=== PATIENT | female | born 1940 | race Caucasian/White ===

== ENCOUNTER 2020-10-25 19:18 | Inpatient (IN) | payer MEDICARE, MEDICAID, SELFPAY ==
[2020-10-25 21:27] VITALS: BMI 22.6
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
[2020-10-26 05:37] VITALS: BP 173/70; PULSE 58; RESP 16; TEMP 36.8; O2SAT 100
[2020-10-26 05:50] VITALS: BP 173/70; PULSE 59
[2020-10-26] MEDS: lisinopriL 5 MG TABLET PO (05:50)
[2020-10-26 07:00] VITALS: BMI 22.8
[2020-10-26] MEDS: Levothyroxine Sodium 125 MCG TABLET PO (07:39)
[2020-10-26] MEDS: traMADoL HCL 50 MG TABLET 25 MG PO ×3 (09:46→21:48)
[2020-10-26] MEDS: Cyanocobalamin (Vitamin B-12) 100 MCG TABLET PO (09:46)
[2020-10-26 09:47] VITALS: BP 171/72; PULSE 57
[2020-10-26] MEDS: Sennosides 8.6 MG TABLET PO ×2 (09:47→21:49)
[2020-10-26] MEDS: Metoprolol Succinate ER 50 MG TAB.ER.24H PO (09:47)
[2020-10-26] MEDS: Aspirin 81 MG TAB.CHEW PO (09:47)
[2020-10-26] MEDS: allopurinoL 300 MG TABLET PO (09:47)
[2020-10-26] MEDS: Cholecalciferol (Vitamin D3) 25 MCG TABLET PO (09:48)
[2020-10-26] MEDS: Magnesium Oxide 400 MG TABLET PO ×2 (09:49→21:49)
[2020-10-26] MEDS: Famotidine 20 MG TABLET 40 MG PO (09:49)
[2020-10-26] MEDS: FLUoxetine HCl 20 MG CAPSULE PO (09:49)
[2020-10-26 09:50] VITALS: BP 171/72; PULSE 57
[2020-10-26] MEDS: amLODIPine Besylate 5 MG TABLET PO (09:50)
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
[2020-10-26 18:00] VITALS: BP 157/66; PULSE 55; RESP 16; TEMP 36.2; O2SAT 97
[2020-10-26] MEDS: Donepezil HCl 10 MG TABLET PO (21:48)
[2020-10-27 06:00] VITALS: BP 143/68; PULSE 51; RESP 12; TEMP 36.7; O2SAT 97
[2020-10-27] MEDS: Levothyroxine Sodium 125 MCG TABLET PO (06:35)
[2020-10-27 07:32] LABS: Valproate 48.7 mcg/mL (50.0-100.0)
[2020-10-27] MEDS: Cholecalciferol (Vitamin D3) 25 MCG TABLET PO (08:29)
[2020-10-27 08:30] VITALS: BP 146/66; PULSE 61
[2020-10-27] MEDS: amLODIPine Besylate 5 MG TABLET PO (08:30)
[2020-10-27] MEDS: Cyanocobalamin (Vitamin B-12) 100 MCG TABLET PO (08:30)
[2020-10-27] MEDS: Metoprolol Succinate ER 50 MG TAB.ER.24H PO (08:30)
[2020-10-27] MEDS: FLUoxetine HCl 20 MG CAPSULE PO (08:30)
[2020-10-27] MEDS: Famotidine 20 MG TABLET 40 MG PO (08:30)
[2020-10-27] MEDS: Sennosides 8.6 MG TABLET PO ×2 (08:30→20:23)
[2020-10-27] MEDS: Magnesium Oxide 400 MG TABLET PO ×2 (08:30→20:23)
[2020-10-27 08:31] VITALS: BP 146/66; PULSE 61
[2020-10-27] MEDS: Aspirin 81 MG TAB.CHEW PO (08:31)
[2020-10-27] MEDS: allopurinoL 300 MG TABLET PO (08:31)
[2020-10-27] MEDS: lisinopriL 5 MG TABLET PO (08:31)
[2020-10-27] MEDS: traMADoL HCL 50 MG TABLET 25 MG PO ×3 (10:08→20:24)
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
[2020-10-27] MEDS: Donepezil HCl 10 MG TABLET PO (20:26)
[2020-10-28 06:00] VITALS: BP 155/65; PULSE 57; RESP 12; TEMP 36.4; O2SAT 100
[2020-10-28] MEDS: Levothyroxine Sodium 125 MCG TABLET PO (06:07)
[2020-10-28] MEDS: FLUoxetine HCl 20 MG CAPSULE PO (08:03)
[2020-10-28] MEDS: Famotidine 20 MG TABLET 40 MG PO (08:03)
[2020-10-28 08:04] VITALS: BP 130/61; PULSE 55
[2020-10-28] MEDS: Cyanocobalamin (Vitamin B-12) 100 MCG TABLET PO (08:04)
[2020-10-28] MEDS: lisinopriL 5 MG TABLET PO (08:04)
[2020-10-28] MEDS: Cholecalciferol (Vitamin D3) 25 MCG TABLET PO (08:04)
[2020-10-28] MEDS: amLODIPine Besylate 5 MG TABLET PO (08:04)
[2020-10-28 08:05] VITALS: BP 130/61; PULSE 55
[2020-10-28] MEDS: allopurinoL 300 MG TABLET PO (08:05)
[2020-10-28] MEDS: Magnesium Oxide 400 MG TABLET PO ×2 (08:05→20:57)
[2020-10-28] MEDS: Aspirin 81 MG TAB.CHEW PO (08:05)
[2020-10-28] MEDS: Metoprolol Succinate ER 50 MG TAB.ER.24H PO (08:05)
[2020-10-28] MEDS: Sennosides 8.6 MG TABLET PO ×2 (08:05→20:57)
[2020-10-28] MEDS: traMADoL HCL 50 MG TABLET 25 MG PO ×3 (08:06→20:58)
--- NOTE | 2020-10-28 10:55 | PM.GPSY.PN ---
Subjective/Objective Subjective Current Medications: Active Medications Generic Name Dose Route Start Last Admin Trade Name Justinq PRN Reason Stop Dose Admin Acetaminophen 650 mg 10/26/20 03:14 Acetaminophen 325 Mg Tablet PO Q4H PRN moderate pain Allopurinol 300 mg 10/26/20 09:00 10/28/20 08:05 Allopurinol 300 Mg Tablet PO 300 mg DAILY [facility] Administration Amlodipine Besylate 5 mg 10/26/20 09:00 10/28/20 08:04 Amlodipine Besylate 5 Mg Tablet PO 5 mg DAILY [facility] Administration Protocol Aspirin 81 mg 10/26/20 09:00 10/28/20 08:05 Aspirin 81 Mg Tab.Chew PO 81 mg DAILY [facility] Administration Cyanocobalamin 100 mcg 10/26/20 09:00 10/28/20 08:04 Cyanocobalamin (Vitamin B-12) 100 Mcg Tablet PO 100 mcg DAILY [facility] Administration Donepezil HCl 10 mg 10/26/20 21:00 10/27/20 20:26 Donepezil Hcl 10 Mg Tablet PO 10 mg BEDTIME [facility] Administration Famotidine 40 mg 10/26/20 09:00 10/28/20 08:03 Famotidine 20 Mg Tablet PO 40 mg DAILY [facility] Administration Fluoxetine HCl 20 mg 10/26/20 09:00 10/28/20 08:03 Fluoxetine Hcl 20 Mg Capsule PO 20 mg DAILY [facility] Administration Levothyroxine Sodium 125 mcg 10/26/20 06:30 10/28/20 06:07 Levothyroxine Sodium 125 Mcg Tablet PO 125 mcg DAILY@0630 [facility] Administration Lisinopril 5 mg 10/26/20 09:00 10/28/20 08:04 Lisinopril 5 Mg Tablet PO 5 mg DAILY [facility] Administration Protocol Magnesium Oxide 400 mg 10/26/20 09:00 10/28/20 08:05 Magnesium Oxide 400 Mg Tablet PO 400 mg BID [facility] Administration Metoprolol Succinate 50 mg 10/26/20 09:00 10/28/20 08:05 Metoprolol Succinate Er 50 Mg Tab.Er.24h PO 50 mg DAILY [facility] Administration Protocol Senna 8.6 mg 10/26/20 09:00 10/28/20 08:05 Sennosides 8.6 Mg Tablet PO 8.6 mg BID [facility] Administration Tramadol HCl 25 mg 10/26/20 03:11 Tramadol Hcl 50 Mg Tablet PO Q6H PRN Moderate Pain (Scale Score 5-6) Tramadol HCl 25 mg 10/26/20 09:00 10/28/20 08:06 Tramadol Hcl 50 Mg Tablet PO 25 mg TID [facility] Administration Valproic Acid 750 mg 10/26/20 21:00 10/27/20 20:26 Valproic Acid (As Sodium Salt) 250 Mg/5 Ml Solution PO 750 mg BEDTIME [facility] Administration Valproic Acid 500 mg 10/26/20 09:00 10/28/20 08:07 Valproic Acid (As Sodium Salt) 250 Mg/5 Ml Solution PO 500 mg DAILY [facility] Administration Vitamin D 25 mcg 10/26/20 09:00 10/28/20 08:04 Cholecalciferol (Vitamin D3) 25 Mcg Tablet PO 25 mcg DAILY [facility] Administration Data Labs Labs: Laboratory Results - last 48 hr 10/27/20 06:21 Valproic Acid 48.7 L
[2020-10-28 18:32] VITALS: BP 130/61; PULSE 55; RESP 16; TEMP 36.6; O2SAT 98
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
[2020-10-28] MEDS: Donepezil HCl 10 MG TABLET PO (20:57)
[2020-10-29 06:00] VITALS: BP 140/96; PULSE 64; RESP 12; TEMP 36.9; O2SAT 98
[2020-10-29] MEDS: Levothyroxine Sodium 125 MCG TABLET PO (06:46)
[2020-10-29 09:01] VITALS: BP 151/70; PULSE 65; RESP 18; TEMP 36.3; O2SAT 100
[2020-10-29 09:03] VITALS: BP 151/70; PULSE 62
[2020-10-29] MEDS: Cyanocobalamin (Vitamin B-12) 100 MCG TABLET PO (09:03)
[2020-10-29] MEDS: allopurinoL 300 MG TABLET PO (09:03)
[2020-10-29] MEDS: Magnesium Oxide 400 MG TABLET PO ×2 (09:03→21:03)
[2020-10-29] MEDS: lisinopriL 5 MG TABLET PO (09:03)
[2020-10-29 09:04] VITALS: BP 151/70; PULSE 62
[2020-10-29] MEDS: Sennosides 8.6 MG TABLET PO ×2 (09:04→21:03)
[2020-10-29] MEDS: amLODIPine Besylate 5 MG TABLET PO (09:04)
[2020-10-29] MEDS: traMADoL HCL 50 MG TABLET 25 MG PO ×3 (09:04→21:04)
[2020-10-29] MEDS: Cholecalciferol (Vitamin D3) 25 MCG TABLET PO (09:04)
[2020-10-29] MEDS: Famotidine 20 MG TABLET 40 MG PO (09:04)
[2020-10-29 09:05] VITALS: BP 151/70; PULSE 62
[2020-10-29] MEDS: FLUoxetine HCl 20 MG CAPSULE PO (09:05)
[2020-10-29] MEDS: Metoprolol Succinate ER 50 MG TAB.ER.24H PO (09:05)
[2020-10-29] MEDS: Aspirin 81 MG TAB.CHEW PO (09:05)
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
[2020-10-29 18:00] VITALS: BP 138/63; PULSE 56; RESP 14; TEMP 36.8; O2SAT 97
[2020-10-29] MEDS: Donepezil HCl 10 MG TABLET PO (21:03)
[2020-10-30 06:00] VITALS: BP 159/70; PULSE 59; RESP 16; TEMP 36.1; O2SAT 98
[2020-10-30] MEDS: Levothyroxine Sodium 125 MCG TABLET PO (06:02)
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
[2020-10-30] MEDS: amLODIPine Besylate 5 MG TABLET PO (10:08)
[2020-10-30] MEDS: Cyanocobalamin (Vitamin B-12) 100 MCG TABLET PO (10:08)
[2020-10-30] MEDS: Magnesium Oxide 400 MG TABLET PO ×2 (10:08→21:00)
[2020-10-30] MEDS: lisinopriL 5 MG TABLET PO (10:08)
[2020-10-30] MEDS: Aspirin 81 MG TAB.CHEW PO (10:08)
[2020-10-30] MEDS: Sennosides 8.6 MG TABLET PO ×2 (10:08→21:00)
[2020-10-30] MEDS: Metoprolol Succinate ER 50 MG TAB.ER.24H PO (10:08)
[2020-10-30] MEDS: Famotidine 20 MG TABLET 40 MG PO (10:08)
[2020-10-30] MEDS: allopurinoL 300 MG TABLET PO (10:08)
[2020-10-30] MEDS: Cholecalciferol (Vitamin D3) 25 MCG TABLET PO (10:08)
[2020-10-30] MEDS: FLUoxetine HCl 20 MG CAPSULE PO (10:08)
[2020-10-30 18:00] VITALS: BP 154/68; PULSE 67; RESP 14; TEMP 36.5; O2SAT 97
[2020-10-30] MEDS: Donepezil HCl 10 MG TABLET PO (21:00)
[2020-10-30] MEDS: traMADoL HCL 50 MG TABLET 25 MG PO (21:00)
[2020-10-31 06:00] VITALS: BP 151/68; PULSE 61; RESP 12; TEMP 36.6; O2SAT 99
[2020-10-31] MEDS: Levothyroxine Sodium 125 MCG TABLET PO (06:10)
[2020-10-31] MEDS: Cyanocobalamin (Vitamin B-12) 100 MCG TABLET PO (09:23)
[2020-10-31] MEDS: Aspirin 81 MG TAB.CHEW PO (09:23)
[2020-10-31] MEDS: Famotidine 20 MG TABLET 40 MG PO (09:23)
[2020-10-31] MEDS: FLUoxetine HCl 20 MG CAPSULE PO (09:23)
[2020-10-31] MEDS: Magnesium Oxide 400 MG TABLET PO ×2 (09:24→20:38)
[2020-10-31] MEDS: Sennosides 8.6 MG TABLET PO ×2 (09:24→20:37)
[2020-10-31] MEDS: allopurinoL 300 MG TABLET PO (09:24)
[2020-10-31] MEDS: Cholecalciferol (Vitamin D3) 25 MCG TABLET PO (09:24)
[2020-10-31 09:25] VITALS: BP 148/70; PULSE 68
[2020-10-31] MEDS: Metoprolol Succinate ER 50 MG TAB.ER.24H PO (09:25)
[2020-10-31 09:26] VITALS: BP 148/70; PULSE 68
[2020-10-31] MEDS: amLODIPine Besylate 5 MG TABLET PO (09:26)
[2020-10-31] MEDS: lisinopriL 5 MG TABLET PO (09:26)
--- NOTE | 2020-10-31 11:57 | HO.PSYCHPN ---
Subjective Subjective Date of Service: 10/31/20 Reason For Visit: Bipolar Disorder unspecified Interim History: The patient was assessed and she reported doing well, anxious and hard of hearing. No evidence of psychosis or paranoia at this moment. Her mood stabilizer is at borderline but she is not acting out and we have not noticed behavioral disturbances. Review of Systems Acute medical concerns: No Medical Review of Systems: unchanged Mental Status Exam Mental Status Exam Patient Appearance: Well Grooomed Patient Orientation: Person Level of Consciousness: Awake Patient Behavior: Appropriate Mood Description: Calm Affect Description: Constricted Patient Cognition Impaired: No Ability to Follow Directions: Good Speech Pattern: Clear Memory Description: Intact Hallucinations: None Delusions: Not Present Thought Process: Slowed Thinking Thought Content: positive for Perseveration Judgement: Poor Diagnostics Vital Signs (24Hr): Vital Signs - 24 hr 10/30/20 18:00 10/31/20 06:00 10/31/20 09:25 Temperature 97.7 F 97.8 F Pulse Rate 67 61 68 Respiratory Rate 14 12 Blood Pressure 154/68 H 151/68 H 148/70 H Pulse Oximetry 97 99 10/31/20 09:26 Temperature Pulse Rate 68 Respiratory Rate Blood Pressure 148/70 H Pulse Oximetry Body Mass Index 22.8 Medications Medications Current Medications Generic Name Dose Route Start Last Admin Trade Name Freq PRN Reason Stop Dose Admin Acetaminophen 650 mg 10/26/20 03:14 Acetaminophen 325 Mg Tablet PO Q4H PRN moderate pain Allopurinol 300 mg 10/26/20 09:00 10/31/20 09:24 Allopurinol 300 Mg Tablet PO 300 mg DAILY MARIA ANTONIA Administration Amlodipine Besylate 5 mg 10/26/20 09:00 10/31/20 09:26 Amlodipine Besylate 5 Mg Tablet PO 5 mg DAILY MARIA ANTONIA Administration Protocol Aspirin 81 mg 10/26/20 09:00 10/31/20 09:23 Aspirin 81 Mg Tab.Chew PO 81 mg DAILY MARIA ANTONIA Administration Cyanocobalamin 100 mcg 10/26/20 09:00 10/31/20 09:23 Cyanocobalamin (Vitamin B-12) 100 Mcg Tablet PO 100 mcg DAILY MARIA ANTONIA Administration Donepezil HCl 10 mg 10/26/20 21:00 10/30/20 21:00 Donepezil Hcl 10 Mg Tablet PO 10 mg BEDTIME MARIA ANTONIA Administration Famotidine 40 mg 10/26/20 09:00 10/31/20 09:23 Famotidine 20 Mg Tablet PO 40 mg DAILY MARIA ANTONIA Administration Fluoxetine HCl 20 mg 10/26/20 09:00 10/31/20 09:23 Fluoxetine Hcl 20 Mg Capsule PO 20 mg DAILY MARIA ANTONIA Administration Levothyroxine Sodium 125 mcg 10/26/20 06:30 10/31/20 06:10 Levothyroxine Sodium 125 Mcg Tablet PO 125 mcg DAILY@0630 MARIA ANTONIA Administration Lisinopril 5 mg 10/26/20 09:00 10/31/20 09:26 Lisinopril 5 Mg Tablet PO 5 mg DAILY MARIA ANTONIA Administration Protocol Magnesium Oxide 400 mg 10/26/20 09:00 10/31/20 09:24 Magnesium Oxide 400 Mg Tablet PO 400 mg BID MARIA ANTONIA Administration Metoprolol Succinate 50 mg 10/26/20 09:00 10/31/20 09:25 Metoprolol Succinate Er 50 Mg Tab.Er.24h PO 50 mg DAILY MARIA ANTONIA Administration Protocol Senna 8.6 mg 10/26/20 09:00 10/31/20 09:24 Sennosides 8.6 Mg Tablet PO 8.6 mg BID MARIA ANTONIA Administration Tramadol HCl 25 mg 10/26/20 03:11 Tramadol Hcl 50 Mg Tablet PO Q6H PRN Moderate Pain (Scale Score 5-6) Valproic Acid 750 mg 10/26/20 21:00 10/30/20 21:00 Valproic Acid (As Sodium Salt) 250 Mg/5 Ml Solution PO 750 mg BEDTIME MARIA ANTONIA Administration Valproic Acid 500 mg 10/26/20 09:00 10/31/20 09:23 Valproic Acid (As Sodium Salt) 250 Mg/5 Ml Solution PO 500 mg DAILY MARIA ANTONIA Administration Vitamin D 25 mcg 10/26/20 09:00 10/31/20 09:24 Cholecalciferol (Vitamin D3) 25 Mcg Tablet PO 25 mcg DAILY MARIA ANTONIA Administration Allergies Allergies Allergy/AdvReac Type Severity Reaction Status Date / Time No Known Allergies Allergy Verified 10/25/20 20:56 Assessment & Plan Assessment & Plan (1) Bipolar 1 disorder: Status: Acute Code(s): F31.9 - Bipolar disorder, unspecified Assessment and Plan: This is an 80-year-old female with history of bipolar disorder, CAD status post stent placement, stroke (6 by patient account), hypertension, thyroid, dementia admitted for psychiatric decompensation. clearly still hypomanic but does not feel paranoid or mistreated here , wants to have say in her dc planning- PSYCHIATRY Continue Depakote lvl 48 ok could increase a bit though already having bruising Gather collateral, call her (does not believe it is her ?cori luong) Greater than 50% of the session was spent on counseling and/or coordination of care Reason for contiued inpatient stay Substantial Risk for: inability to function, rapid decompensation and med/psych decompensation
--- NOTE | 2020-10-31 17:13 | PC.NURSE ---
Patient is confused and grandiose. Has one hearing aid so does not hear well. Difficult to determine whether she is answering irrelevantly due to hearing issues or confusion. This copying machine mechanic believes it is more confusion and her desire to be in control of the conversation. She wanders in and out of her room during the day and while she is with other patients or participating in group she is calm and cooperative.
[2020-10-31 17:55] VITALS: BP 159/72; PULSE 68; RESP 14; TEMP 36.7; O2SAT 99
[2020-10-31] MEDS: Donepezil HCl 10 MG TABLET PO (20:37)
--- NOTE | 2020-10-31 21:51 | PC.NURSE ---
PT is concerned about the involvement and status of her throughout this process. PT is complaining of feeling like she is being wrongfully locked up on this unit. PT informed that the social science professor would speak with her again in the morning and provide details about her disposition.This nurse received report that social science professor had attempted to speak with the PT earlier but PT was falling asleep during the conversation.
[2020-11-01] MEDS: Levothyroxine Sodium 125 MCG TABLET PO (05:50)
[2020-11-01 06:00] VITALS: BP 141/64; PULSE 59; RESP 14; TEMP 35.5; O2SAT 100
[2020-11-01] MEDS: Magnesium Oxide 400 MG TABLET PO ×2 (08:15→20:18)
[2020-11-01] MEDS: Famotidine 20 MG TABLET 40 MG PO (08:15)
[2020-11-01] MEDS: Cyanocobalamin (Vitamin B-12) 100 MCG TABLET PO (08:15)
[2020-11-01] MEDS: allopurinoL 300 MG TABLET PO (08:15)
[2020-11-01 08:16] VITALS: BP 157/70; PULSE 66
[2020-11-01] MEDS: FLUoxetine HCl 20 MG CAPSULE PO (08:16)
[2020-11-01] MEDS: Cholecalciferol (Vitamin D3) 25 MCG TABLET PO (08:16)
[2020-11-01] MEDS: Sennosides 8.6 MG TABLET PO ×2 (08:16→20:18)
[2020-11-01] MEDS: Aspirin 81 MG TAB.CHEW PO (08:16)
[2020-11-01] MEDS: lisinopriL 5 MG TABLET PO (08:16)
[2020-11-01 08:17] VITALS: BP 157/70; PULSE 66
[2020-11-01] MEDS: Metoprolol Succinate ER 50 MG TAB.ER.24H PO (08:17)
[2020-11-01 08:18] VITALS: BP 157/70; PULSE 66
[2020-11-01] MEDS: amLODIPine Besylate 5 MG TABLET PO (08:18)
--- NOTE | 2020-11-01 12:11 | HO.PSYCHPN ---
Subjective Subjective Date of Service: 11/01/20 Reason For Visit: Bipolar Disorder unspecified Interim History: The patient has been calm and cooperative, pleasant and participating on the unit activities. She is hard of hearing and she is unable to provide details. Mental Status Exam Mental Status Exam Patient Appearance: Well Grooomed Patient Orientation: Person Level of Consciousness: Awake Patient Behavior: Appropriate and Cooperative Mood Description: Calm Affect Description: Calm Patient Cognition Impaired: Yes Ability to Follow Directions: Fair Speech Pattern: Clear Memory Description: Intact Hallucinations: None Delusions: Not Present Thought Process: Distracted Thought Content: positive for Circumstantial Judgement: Fair Diagnostics Vital Signs (24Hr): Vital Signs - 24 hr 10/31/20 17:55 11/01/20 06:00 11/01/20 08:16 Temperature 98.0 F 96 F L Pulse Rate 68 59 66 Respiratory Rate 14 14 Blood Pressure 159/72 H 141/64 H 157/70 H Pulse Oximetry 99 100 11/01/20 08:17 11/01/20 08:18 Temperature Pulse Rate 66 66 Respiratory Rate Blood Pressure 157/70 H 157/70 H Pulse Oximetry Body Mass Index 22.8 Medications Medications Current Medications Generic Name Dose Route Start Last Admin Trade Name Freq PRN Reason Stop Dose Admin Acetaminophen 650 mg 10/26/20 03:14 Acetaminophen 325 Mg Tablet PO Q4H PRN moderate pain Allopurinol 300 mg 10/26/20 09:00 11/01/20 08:15 Allopurinol 300 Mg Tablet PO 300 mg DAILY [facility] Administration Amlodipine Besylate 5 mg 10/26/20 09:00 11/01/20 08:18 Amlodipine Besylate 5 Mg Tablet PO 5 mg DAILY [facility] Administration Protocol Aspirin 81 mg 10/26/20 09:00 11/01/20 08:16 Aspirin 81 Mg Tab.Chew PO 81 mg DAILY [facility] Administration Cyanocobalamin 100 mcg 10/26/20 09:00 11/01/20 08:15 Cyanocobalamin (Vitamin B-12) 100 Mcg Tablet PO 100 mcg DAILY [facility] Administration Donepezil HCl 10 mg 10/26/20 21:00 10/31/20 20:37 Donepezil Hcl 10 Mg Tablet PO 10 mg BEDTIME [facility] Administration Famotidine 40 mg 10/26/20 09:00 11/01/20 08:15 Famotidine 20 Mg Tablet PO 40 mg DAILY [facility] Administration Fluoxetine HCl 20 mg 10/26/20 09:00 11/01/20 08:16 Fluoxetine Hcl 20 Mg Capsule PO 20 mg DAILY [facility] Administration Levothyroxine Sodium 125 mcg 10/26/20 06:30 11/01/20 05:50 Levothyroxine Sodium 125 Mcg Tablet PO 125 mcg DAILY@0630 [facility] Administration Lisinopril 5 mg 10/26/20 09:00 11/01/20 08:16 Lisinopril 5 Mg Tablet PO 5 mg DAILY [facility] Administration Protocol Magnesium Oxide 400 mg 10/26/20 09:00 11/01/20 08:15 Magnesium Oxide 400 Mg Tablet PO 400 mg BID [facility] Administration Metoprolol Succinate 50 mg 10/26/20 09:00 11/01/20 08:17 Metoprolol Succinate Er 50 Mg Tab.Er.24h PO 50 mg DAILY [facility] Administration Protocol Senna 8.6 mg 10/26/20 09:00 11/01/20 08:16 Sennosides 8.6 Mg Tablet PO 8.6 mg BID [facility] Administration Tramadol HCl 25 mg 10/26/20 03:11 Tramadol Hcl 50 Mg Tablet PO Q6H PRN Moderate Pain (Scale Score 5-6) Valproic Acid 750 mg 10/26/20 21:00 10/31/20 20:37 Valproic Acid (As Sodium Salt) 250 Mg/5 Ml Solution PO 750 mg BEDTIME [facility] Administration Valproic Acid 500 mg 10/26/20 09:00 11/01/20 08:15 Valproic Acid (As Sodium Salt) 250 Mg/5 Ml Solution PO 500 mg DAILY [facility] Administration Vitamin D 25 mcg 10/26/20 09:00 11/01/20 08:16 Cholecalciferol (Vitamin D3) 25 Mcg Tablet PO 25 mcg DAILY [facility] Administration Allergies Allergies Allergy/AdvReac Type Severity Reaction Status Date / Time No Known Allergies Allergy Verified 10/25/20 20:56 Assessment & Plan Assessment & Plan (1) Bipolar 1 disorder: Status: Acute Code(s): F31.9 - Bipolar disorder, unspecified Assessment and Plan: This is an 80-year-old female with history of bipolar disorder, CAD status post stent placement, stroke (6 by patient account), hypertension, thyroid, dementia admitted for psychiatric decompensation. clearly still hypomanic but does not feel paranoid or mistreated here , wants to have say in her dc planning- PSYCHIATRY Continue Depakote lvl 48 ok could increase a bit though already having bruising Gather collateral, call her (does not believe it is her ?cap cherise) Greater than 50% of the session was spent on counseling and/or coordination of care Reason for contiued inpatient stay Substantial Risk for: inability to function, rapid decompensation and med/psych decompensation
[2020-11-01 17:58] VITALS: BP 145/66; PULSE 58; RESP 17; TEMP 36.6; O2SAT 97
[2020-11-01] MEDS: Donepezil HCl 10 MG TABLET PO (20:18)
[2020-11-02 06:00] VITALS: BP 162/69; PULSE 61; RESP 12; TEMP 36.6; O2SAT 97
[2020-11-02] MEDS: Levothyroxine Sodium 125 MCG TABLET PO (06:03)
[2020-11-02 07:00] VITALS: BMI 22.9
[2020-11-02 09:10] VITALS: BP 144/70; PULSE 63
[2020-11-02] MEDS: Aspirin 81 MG TAB.CHEW PO (09:10)
[2020-11-02] MEDS: Metoprolol Succinate ER 50 MG TAB.ER.24H PO (09:10)
[2020-11-02] MEDS: Cyanocobalamin (Vitamin B-12) 100 MCG TABLET PO (09:11)
[2020-11-02] MEDS: FLUoxetine HCl 20 MG CAPSULE PO (09:11)
[2020-11-02] MEDS: Magnesium Oxide 400 MG TABLET PO ×2 (09:11→20:28)
[2020-11-02 09:12] VITALS: BP 144/70; PULSE 63
[2020-11-02] MEDS: allopurinoL 300 MG TABLET PO (09:12)
[2020-11-02] MEDS: Cholecalciferol (Vitamin D3) 25 MCG TABLET PO (09:12)
[2020-11-02] MEDS: lisinopriL 5 MG TABLET PO (09:12)
[2020-11-02 09:13] VITALS: BP 144/70; PULSE 63
[2020-11-02] MEDS: amLODIPine Besylate 5 MG TABLET PO (09:13)
[2020-11-02] MEDS: Famotidine 20 MG TABLET 40 MG PO (09:13)
[2020-11-02] MEDS: Sennosides 8.6 MG TABLET PO ×2 (09:14→20:28)
--- NOTE | 2020-11-02 11:34 | HO.PSYCHPN ---
Subjective Subjective Date of Service: 11/02/20 Reason For Visit: Bipolar Disorder unspecified Interim History: The patient was tearfula yesterday in the afternoon while she was talking over the phone. IN general, she remains cooperative, hard of hearing Mental Status Exam Mental Status Exam Patient Appearance: Well Grooomed Patient Orientation: Person Level of Consciousness: Awake Patient Behavior: Appropriate Mood Description: Calm Affect Description: Constricted Patient Cognition Impaired: Yes Ability to Follow Directions: Good Speech Pattern: Clear and Rapid Memory Description: Intact Hallucinations: None Delusions: Not Present Thought Process: Slowed Thinking Thought Content: positive for Poverty of Content Judgement: Fair Diagnostics Vital Signs (24Hr): Vital Signs - 24 hr 11/01/20 17:58 11/02/20 06:00 11/02/20 09:10 Temperature 97.8 F 97.8 F Pulse Rate 58 61 63 Respiratory Rate 17 12 Blood Pressure 145/66 H 162/69 H 144/70 H Pulse Oximetry 97 97 11/02/20 09:12 11/02/20 09:13 Temperature Pulse Rate 63 63 Respiratory Rate Blood Pressure 144/70 H 144/70 H Pulse Oximetry Body Mass Index 22.8 Medications Medications Current Medications Generic Name Dose Route Start Last Admin Trade Name Freq PRN Reason Stop Dose Admin Acetaminophen 650 mg 10/26/20 03:14 Acetaminophen 325 Mg Tablet PO Q4H PRN moderate pain Allopurinol 300 mg 10/26/20 09:00 11/02/20 09:12 Allopurinol 300 Mg Tablet PO 300 mg DAILY [facility] Administration Amlodipine Besylate 5 mg 10/26/20 09:00 11/02/20 09:13 Amlodipine Besylate 5 Mg Tablet PO 5 mg DAILY [facility] Administration Protocol Aspirin 81 mg 10/26/20 09:00 11/02/20 09:10 Aspirin 81 Mg Tab.Chew PO 81 mg DAILY [facility] Administration Cyanocobalamin 100 mcg 10/26/20 09:00 11/02/20 09:11 Cyanocobalamin (Vitamin B-12) 100 Mcg Tablet PO 100 mcg DAILY [facility] Administration Donepezil HCl 10 mg 10/26/20 21:00 11/01/20 20:18 Donepezil Hcl 10 Mg Tablet PO 10 mg BEDTIME [facility] Administration Famotidine 40 mg 10/26/20 09:00 11/02/20 09:13 Famotidine 20 Mg Tablet PO 40 mg DAILY [facility] Administration Fluoxetine HCl 20 mg 10/26/20 09:00 11/02/20 09:11 Fluoxetine Hcl 20 Mg Capsule PO 20 mg DAILY [facility] Administration Levothyroxine Sodium 125 mcg 10/26/20 06:30 11/02/20 06:03 Levothyroxine Sodium 125 Mcg Tablet PO 125 mcg DAILY@0630 [facility] Administration Lisinopril 5 mg 10/26/20 09:00 11/02/20 09:12 Lisinopril 5 Mg Tablet PO 5 mg DAILY [facility] Administration Protocol Magnesium Oxide 400 mg 10/26/20 09:00 11/02/20 09:11 Magnesium Oxide 400 Mg Tablet PO 400 mg BID [facility] Administration Metoprolol Succinate 50 mg 10/26/20 09:00 11/02/20 09:10 Metoprolol Succinate Er 50 Mg Tab.Er.24h PO 50 mg DAILY [facility] Administration Protocol Senna 8.6 mg 10/26/20 09:00 11/02/20 09:14 Sennosides 8.6 Mg Tablet PO 8.6 mg BID [facility] Administration Tramadol HCl 25 mg 10/26/20 03:11 Tramadol Hcl 50 Mg Tablet PO Q6H PRN Moderate Pain (Scale Score 5-6) Valproic Acid 750 mg 10/26/20 21:00 11/01/20 20:19 Valproic Acid (As Sodium Salt) 250 Mg/5 Ml Solution PO 750 mg BEDTIME [facility] Administration Valproic Acid 500 mg 10/26/20 09:00 11/02/20 09:14 Valproic Acid (As Sodium Salt) 250 Mg/5 Ml Solution PO 500 mg DAILY [facility] Administration Vitamin D 25 mcg 10/26/20 09:00 11/02/20 09:12 Cholecalciferol (Vitamin D3) 25 Mcg Tablet PO 25 mcg DAILY [facility] Administration Allergies Allergies Allergy/AdvReac Type Severity Reaction Status Date / Time No Known Allergies Allergy Verified 10/25/20 20:56 Assessment & Plan Assessment & Plan (1) Bipolar 1 disorder: Status: Acute Code(s): F31.9 - Bipolar disorder, unspecified Assessment and Plan: This is an 80-year-old female with history of bipolar disorder, CAD status post stent placement, stroke (6 by patient account), hypertension, thyroid, dementia admitted for psychiatric decompensation. clearly still hypomanic but does not feel paranoid or mistreated here , wants to have say in her dc planning- PSYCHIATRY Continue Depakote lvl 48 ok could increase a bit though already having bruising Gather collateral, call her (does not believe it is her ?cap cherise) Greater than 50% of the session was spent on counseling and/or coordination of care Reason for contiued inpatient stay Substantial Risk for: inability to function, rapid decompensation and med/psych decompensation
[2020-11-02 18:00] VITALS: BP 139/67; PULSE 61; RESP 16; TEMP 36.3; O2SAT 98
[2020-11-02] MEDS: Donepezil HCl 10 MG TABLET PO (20:28)
[2020-11-03 06:00] VITALS: BP 168/77; PULSE 61; RESP 16; TEMP 36.7; O2SAT 100
[2020-11-03] MEDS: Levothyroxine Sodium 125 MCG TABLET PO (06:02)
[2020-11-03 09:31] VITALS: BP 138/60; PULSE 64
[2020-11-03] MEDS: Famotidine 20 MG TABLET 40 MG PO (09:31)
[2020-11-03] MEDS: amLODIPine Besylate 5 MG TABLET PO (09:31)
[2020-11-03 09:32] VITALS: BP 138/60; PULSE 64
[2020-11-03] MEDS: Metoprolol Succinate ER 50 MG TAB.ER.24H PO (09:32)
[2020-11-03] MEDS: Sennosides 8.6 MG TABLET PO ×2 (09:32→20:36)
[2020-11-03] MEDS: Cholecalciferol (Vitamin D3) 25 MCG TABLET PO (09:32)
[2020-11-03 09:33] VITALS: BP 138/60; PULSE 64
[2020-11-03] MEDS: Cyanocobalamin (Vitamin B-12) 100 MCG TABLET PO (09:33)
[2020-11-03] MEDS: Aspirin 81 MG TAB.CHEW PO (09:33)
[2020-11-03] MEDS: allopurinoL 300 MG TABLET PO (09:33)
[2020-11-03] MEDS: lisinopriL 5 MG TABLET PO (09:33)
[2020-11-03] MEDS: Magnesium Oxide 400 MG TABLET PO ×2 (09:33→20:36)
[2020-11-03] MEDS: FLUoxetine HCl 20 MG CAPSULE PO (09:42)
--- NOTE | 2020-11-03 12:16 | HO.PSYCHPN ---
Subjective Subjective Date of Service: 11/03/20 Reason For Visit: Bipolar Disorder unspecified Interim History: The patient was sad and dysphoric yesterday. Apparently, she feels that her wants to leave her but it seems that her has her own medical problems. Mental Status Exam Mental Status Exam Patient Appearance: Well Grooomed Patient Orientation: Person and Place Level of Consciousness: Awake Patient Behavior: Appropriate Mood Description: Calm and Withdrawn Affect Description: Constricted Patient Cognition Impaired: Yes Ability to Follow Directions: Good Speech Pattern: Clear Memory Description: Immediate Impaired Hallucinations: None Delusions: Grandiose Thought Process: Distracted Thought Content: positive for Disoriented Judgement: Fair Diagnostics Vital Signs (24Hr): Vital Signs - 24 hr 11/02/20 18:00 11/03/20 06:00 11/03/20 09:31 Temperature 97.3 F 98.0 F Pulse Rate 61 61 64 Respiratory Rate 16 16 Blood Pressure 139/67 168/77 H 138/60 Pulse Oximetry 98 100 11/03/20 09:32 11/03/20 09:33 Temperature Pulse Rate 64 64 Respiratory Rate Blood Pressure 138/60 138/60 Pulse Oximetry Body Mass Index 22.9 Medications Medications Current Medications Generic Name Dose Route Start Last Admin Trade Name Freq PRN Reason Stop Dose Admin Acetaminophen 650 mg 10/26/20 03:14 Acetaminophen 325 Mg Tablet PO Q4H PRN moderate pain Allopurinol 300 mg 10/26/20 09:00 11/03/20 09:33 Allopurinol 300 Mg Tablet PO 300 mg DAILY [facility] Administration Amlodipine Besylate 5 mg 10/26/20 09:00 11/03/20 09:31 Amlodipine Besylate 5 Mg Tablet PO 5 mg DAILY [facility] Administration Protocol Aspirin 81 mg 10/26/20 09:00 11/03/20 09:33 Aspirin 81 Mg Tab.Chew PO 81 mg DAILY [facility] Administration Cyanocobalamin 100 mcg 10/26/20 09:00 11/03/20 09:33 Cyanocobalamin (Vitamin B-12) 100 Mcg Tablet PO 100 mcg DAILY [facility] Administration Donepezil HCl 10 mg 10/26/20 21:00 11/02/20 20:28 Donepezil Hcl 10 Mg Tablet PO 10 mg BEDTIME [facility] Administration Famotidine 40 mg 10/26/20 09:00 11/03/20 09:31 Famotidine 20 Mg Tablet PO 40 mg DAILY [facility] Administration Fluoxetine HCl 20 mg 10/26/20 09:00 11/03/20 09:42 Fluoxetine Hcl 20 Mg Capsule PO 20 mg DAILY [facility] Administration Levothyroxine Sodium 125 mcg 10/26/20 06:30 11/03/20 06:02 Levothyroxine Sodium 125 Mcg Tablet PO 125 mcg DAILY@0630 [facility] Administration Lisinopril 5 mg 10/26/20 09:00 11/03/20 09:33 Lisinopril 5 Mg Tablet PO 5 mg DAILY [facility] Administration Protocol Magnesium Oxide 400 mg 10/26/20 09:00 11/03/20 09:33 Magnesium Oxide 400 Mg Tablet PO 400 mg BID [facility] Administration Metoprolol Succinate 50 mg 10/26/20 09:00 11/03/20 09:32 Metoprolol Succinate Er 50 Mg Tab.Er.24h PO 50 mg DAILY [facility] Administration Protocol Senna 8.6 mg 10/26/20 09:00 11/03/20 09:32 Sennosides 8.6 Mg Tablet PO 8.6 mg BID [facility] Administration Tramadol HCl 25 mg 10/26/20 03:11 Tramadol Hcl 50 Mg Tablet PO Q6H PRN Moderate Pain (Scale Score 5-6) Valproic Acid 750 mg 10/26/20 21:00 11/02/20 20:29 Valproic Acid (As Sodium Salt) 250 Mg/5 Ml Solution PO 750 mg BEDTIME [facility] Administration Valproic Acid 500 mg 10/26/20 09:00 11/03/20 09:31 Valproic Acid (As Sodium Salt) 250 Mg/5 Ml Solution PO 500 mg DAILY [facility] Administration Vitamin D 25 mcg 10/26/20 09:00 11/03/20 09:32 Cholecalciferol (Vitamin D3) 25 Mcg Tablet PO 25 mcg DAILY [facility] Administration Allergies Allergies Allergy/AdvReac Type Severity Reaction Status Date / Time No Known Allergies Allergy Verified 10/25/20 20:56 Assessment & Plan Assessment & Plan (1) Bipolar 1 disorder: Status: Acute Code(s): F31.9 - Bipolar disorder, unspecified Assessment and Plan: This is an 80-year-old female with history of bipolar disorder, CAD status post stent placement, stroke (6 by patient account), hypertension, thyroid, dementia admitted for psychiatric decompensation. clearly still hypomanic but does not feel paranoid or mistreated here , wants to have say in her dc planning- PSYCHIATRY Continue Depakote lvl 48 ok could increase a bit though already having bruising Gather collateral, call her (does not believe it is her ?cori luong) Greater than 50% of the session was spent on counseling and/or coordination of care Reason for contiued inpatient stay Substantial Risk for: inability to function, rapid decompensation and med/psych decompensation
[2020-11-03 17:56] VITALS: BP 147/64; PULSE 59; RESP 16; TEMP 36.2; O2SAT 98
[2020-11-03 20:30] VITALS: BP 139/66; PULSE 57; RESP 16; TEMP 36.2; O2SAT 96
[2020-11-03] MEDS: Donepezil HCl 10 MG TABLET PO (20:36)
[2020-11-04] MEDS: Levothyroxine Sodium 125 MCG TABLET PO (05:51)
[2020-11-04 05:57] VITALS: BP 164/73; PULSE 73; RESP 18; TEMP 36.7; O2SAT 99
[2020-11-04] MEDS: FLUoxetine HCl 20 MG CAPSULE PO (08:30)
[2020-11-04] MEDS: Aspirin 81 MG TAB.CHEW PO (08:30)
[2020-11-04] MEDS: Cyanocobalamin (Vitamin B-12) 100 MCG TABLET PO (08:30)
[2020-11-04] MEDS: Famotidine 20 MG TABLET 40 MG PO (08:30)
[2020-11-04] MEDS: Magnesium Oxide 400 MG TABLET PO ×2 (08:31→20:57)
[2020-11-04] MEDS: Sennosides 8.6 MG TABLET PO ×2 (08:31→20:57)
[2020-11-04] MEDS: Cholecalciferol (Vitamin D3) 25 MCG TABLET PO (08:31)
[2020-11-04 08:35] VITALS: BP 147/89; PULSE 73
[2020-11-04] MEDS: lisinopriL 5 MG TABLET PO (08:35)
[2020-11-04] MEDS: amLODIPine Besylate 5 MG TABLET PO (08:35)
[2020-11-04] MEDS: Metoprolol Succinate ER 50 MG TAB.ER.24H PO (08:35)
[2020-11-04] MEDS: allopurinoL 300 MG TABLET PO (08:35)
--- NOTE | 2020-11-04 14:35 | HO.PSYCHPN ---
Subjective Subjective Date of Service: 11/04/20 Reason For Visit: Bipolar Disorder unspecified Interim History: refused to engage with sql report writer. Pretended to sleep, despite opening eyes and moving legs at times. Review of Systems Review of Systems Yes Unobtainable due to mental status Mental Status Exam Mental Status Exam Narrative: Lay in bed and refused to engage with sql report writer. Does not appear in distress. Eyes were closed most of the time, but was moving legs and intermittently opening eyes. Diagnostics Vital Signs (24Hr): Vital Signs - 24 hr 11/03/20 17:56 11/03/20 20:30 11/04/20 05:57 Temperature 97.1 F 97.1 F 98.1 F Pulse Rate 59 57 73 Respiratory Rate 16 16 18 Blood Pressure 147/64 H 139/66 164/73 H Pulse Oximetry 98 96 99 11/04/20 08:35 Temperature Pulse Rate 73 Respiratory Rate Blood Pressure 147/89 H Pulse Oximetry Body Mass Index 22.9 Medications Medications Current Medications Generic Name Dose Route Start Last Admin Trade Name Freq PRN Reason Stop Dose Admin Acetaminophen 650 mg 10/26/20 03:14 Acetaminophen 325 Mg Tablet PO Q4H PRN moderate pain Allopurinol 300 mg 10/26/20 09:00 11/04/20 08:35 Allopurinol 300 Mg Tablet PO 300 mg DAILY [facility] Administration Amlodipine Besylate 5 mg 10/26/20 09:00 11/04/20 08:35 Amlodipine Besylate 5 Mg Tablet PO 5 mg DAILY [facility] Administration Protocol Aspirin 81 mg 10/26/20 09:00 11/04/20 08:30 Aspirin 81 Mg Tab.Chew PO 81 mg DAILY [facility] Administration Cyanocobalamin 100 mcg 10/26/20 09:00 11/04/20 08:30 Cyanocobalamin (Vitamin B-12) 100 Mcg Tablet PO 100 mcg DAILY [facility] Administration Donepezil HCl 10 mg 10/26/20 21:00 11/03/20 20:36 Donepezil Hcl 10 Mg Tablet PO 10 mg BEDTIME [facility] Administration Famotidine 40 mg 10/26/20 09:00 11/04/20 08:30 Famotidine 20 Mg Tablet PO 40 mg DAILY [facility] Administration Fluoxetine HCl 20 mg 10/26/20 09:00 11/04/20 08:30 Fluoxetine Hcl 20 Mg Capsule PO 20 mg DAILY [facility] Administration Levothyroxine Sodium 125 mcg 10/26/20 06:30 11/04/20 05:51 Levothyroxine Sodium 125 Mcg Tablet PO 125 mcg DAILY@0630 [facility] Administration Lisinopril 5 mg 10/26/20 09:00 11/04/20 08:35 Lisinopril 5 Mg Tablet PO 5 mg DAILY [facility] Administration Protocol Magnesium Oxide 400 mg 10/26/20 09:00 11/04/20 08:31 Magnesium Oxide 400 Mg Tablet PO 400 mg BID [facility] Administration Metoprolol Succinate 50 mg 10/26/20 09:00 11/04/20 08:35 Metoprolol Succinate Er 50 Mg Tab.Er.24h PO 50 mg DAILY [facility] Administration Protocol Senna 8.6 mg 10/26/20 09:00 11/04/20 08:31 Sennosides 8.6 Mg Tablet PO 8.6 mg BID [facility] Administration Valproic Acid 750 mg 10/26/20 21:00 11/03/20 20:36 Valproic Acid (As Sodium Salt) 250 Mg/5 Ml Solution PO 750 mg BEDTIME [facility] Administration Valproic Acid 500 mg 10/26/20 09:00 11/04/20 08:32 Valproic Acid (As Sodium Salt) 250 Mg/5 Ml Solution PO 500 mg DAILY [facility] Administration Vitamin D 25 mcg 10/26/20 09:00 11/04/20 08:31 Cholecalciferol (Vitamin D3) 25 Mcg Tablet PO 25 mcg DAILY [facility] Administration Allergies Allergies Allergy/AdvReac Type Severity Reaction Status Date / Time No Known Allergies Allergy Verified 10/25/20 20:56 Assessment & Plan Assessment & Plan (1) Bipolar 1 disorder: Status: Acute Code(s): F31.9 - Bipolar disorder, unspecified Assessment and Plan: No change from primary treatments planned on 11/03/2020 which was primarily Depakote & liaising with family. Greater than 50% of the session was spent on counseling and/or coordination of care Reason for contiued inpatient stay Substantial Risk for: inability to function and rapid decompensation
[2020-11-04 18:00] VITALS: BP 131/59; PULSE 59; RESP 18; TEMP 36.5; O2SAT 98
[2020-11-04] MEDS: Donepezil HCl 10 MG TABLET PO (20:57)
[2020-11-05 06:00] VITALS: BP 139/65; PULSE 70; RESP 18; TEMP 36.7; O2SAT 96
[2020-11-05] MEDS: Levothyroxine Sodium 125 MCG TABLET PO (06:12)
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
[2020-11-05 18:00] VITALS: BP 147/69; PULSE 66; TEMP 36.8; O2SAT 99
[2020-11-05] MEDS: Donepezil HCl 10 MG TABLET PO (20:31)
[2020-11-05] MEDS: Magnesium Oxide 400 MG TABLET PO (20:31)
[2020-11-05] MEDS: Sennosides 8.6 MG TABLET PO (20:31)
[2020-11-06] MEDS: Levothyroxine Sodium 125 MCG TABLET PO (05:29)
[2020-11-06 06:00] VITALS: BP 166/73; PULSE 86; TEMP 36.6; O2SAT 96
[2020-11-06 09:59] VITALS: BP 166/73; PULSE 86
[2020-11-06] MEDS: Famotidine 20 MG TABLET 40 MG PO (09:59)
[2020-11-06] MEDS: amLODIPine Besylate 5 MG TABLET PO (09:59)
[2020-11-06] MEDS: Metoprolol Succinate ER 50 MG TAB.ER.24H PO (09:59)
[2020-11-06 10:00] VITALS: BP 166/73; PULSE 86
[2020-11-06] MEDS: allopurinoL 300 MG TABLET PO (10:00)
[2020-11-06] MEDS: Cholecalciferol (Vitamin D3) 25 MCG TABLET PO (10:00)
[2020-11-06] MEDS: Magnesium Oxide 400 MG TABLET PO ×2 (10:00→22:11)
[2020-11-06] MEDS: Cyanocobalamin (Vitamin B-12) 100 MCG TABLET PO (10:00)
[2020-11-06] MEDS: lisinopriL 5 MG TABLET PO (10:00)
[2020-11-06] MEDS: Sennosides 8.6 MG TABLET PO ×2 (10:00→22:11)
[2020-11-06] MEDS: Aspirin 81 MG TAB.CHEW PO (10:00)
[2020-11-06] MEDS: FLUoxetine HCl 20 MG CAPSULE PO (10:01)
--- NOTE | 2020-11-06 11:39 | HO.PSYCHPN ---
Subjective Subjective Date of Service: 11/06/20 Reason For Visit: Bipolar Disorder unspecified Subjective Notes: Conditional Voluntary Interim History: The patient, since admission, has been doing well, no evidence of stephanie or any accusatory statements that were reported on the ED before admission. She was sad last weekend since she couldn't contact her but overall, she was behaving very well. She was seen participating appropriately in groups, she is a little uncomfortable since her hearing aid is not working well. No safety concerns. Review of Systems Acute medical concerns: No Medical Review of Systems: unchanged Mental Status Exam Mental Status Exam Patient Appearance: Well Grooomed Patient Orientation: Person and Place Level of Consciousness: Awake and Appropriate Patient Behavior: Cooperative Mood Description: Calm Affect Description: Constricted Patient Cognition Impaired: Yes Ability to Follow Directions: Good Speech Pattern: Clear Hallucinations: None Delusions: Not Present Thought Process: Distracted Thought Content: positive for Circumstantial and positive for Poverty of Content Judgement: Fair Diagnostics Vital Signs (24Hr): Vital Signs - 24 hr 11/05/20 18:00 11/06/20 06:00 11/06/20 09:59 Temperature 98.3 F 98 F Pulse Rate 66 86 86 Blood Pressure 147/69 H 166/73 H 166/73 H Pulse Oximetry 99 96 11/06/20 10:00 Temperature Pulse Rate 86 Blood Pressure 166/73 H Pulse Oximetry Body Mass Index 22.9 Medications Medications Current Medications Generic Name Dose Route Start Last Admin Trade Name Freq PRN Reason Stop Dose Admin Acetaminophen 650 mg 10/26/20 03:14 Acetaminophen 325 Mg Tablet PO Q4H PRN moderate pain Allopurinol 300 mg 10/26/20 09:00 11/06/20 10:00 Allopurinol 300 Mg Tablet PO 300 mg DAILY MARIA ANTONIA Administration Amlodipine Besylate 5 mg 10/26/20 09:00 11/06/20 09:59 Amlodipine Besylate 5 Mg Tablet PO 5 mg DAILY MARIA ANTONIA Administration Protocol Aspirin 81 mg 10/26/20 09:00 11/06/20 10:00 Aspirin 81 Mg Tab.Chew PO 81 mg DAILY MARIA ANTONIA Administration Cyanocobalamin 100 mcg 10/26/20 09:00 11/06/20 10:00 Cyanocobalamin (Vitamin B-12) 100 Mcg Tablet PO 100 mcg DAILY MARIA ANTONIA Administration Donepezil HCl 10 mg 10/26/20 21:00 11/05/20 20:31 Donepezil Hcl 10 Mg Tablet PO 10 mg BEDTIME MARIA ANTONIA Administration Famotidine 40 mg 10/26/20 09:00 11/06/20 09:59 Famotidine 20 Mg Tablet PO 40 mg DAILY MARIA ANTONIA Administration Fluoxetine HCl 20 mg 10/26/20 09:00 11/06/20 10:01 Fluoxetine Hcl 20 Mg Capsule PO 20 mg DAILY MARIA ANTONIA Administration Levothyroxine Sodium 125 mcg 10/26/20 06:30 11/06/20 05:29 Levothyroxine Sodium 125 Mcg Tablet PO 125 mcg DAILY@0630 MARIA ANTONIA Administration Lisinopril 5 mg 10/26/20 09:00 11/06/20 10:00 Lisinopril 5 Mg Tablet PO 5 mg DAILY MARIA ANTONIA Administration Protocol Magnesium Oxide 400 mg 10/26/20 09:00 11/06/20 10:00 Magnesium Oxide 400 Mg Tablet PO 400 mg BID MARIA ANTONIA Administration Metoprolol Succinate 50 mg 10/26/20 09:00 11/06/20 09:59 Metoprolol Succinate Er 50 Mg Tab.Er.24h PO 50 mg DAILY MARIA ANTONIA Administration Protocol Senna 8.6 mg 10/26/20 09:00 11/06/20 10:00 Sennosides 8.6 Mg Tablet PO 8.6 mg BID MARIA ANTONIA Administration Valproic Acid 750 mg 10/26/20 21:00 11/05/20 20:31 Valproic Acid (As Sodium Salt) 250 Mg/5 Ml Solution PO 750 mg BEDTIME MARIA ANTONIA Administration Valproic Acid 500 mg 10/26/20 09:00 11/06/20 10:01 Valproic Acid (As Sodium Salt) 250 Mg/5 Ml Solution PO 500 mg DAILY MARIA ANTONIA Administration Vitamin D 25 mcg 10/26/20 09:00 11/06/20 10:00 Cholecalciferol (Vitamin D3) 25 Mcg Tablet PO 25 mcg DAILY MARIA ANTONIA Administration Allergies Allergies Allergy/AdvReac Type Severity Reaction Status Date / Time No Known Allergies Allergy Verified 10/25/20 20:56 Assessment & Plan Assessment & Plan (1) Bipolar 1 disorder: Status: Acute Code(s): F31.9 - Bipolar disorder, unspecified Assessment and Plan: No change from primary treatments Keep same treatment. Tomorrow, CBC, VALP, BMP and LFT. Greater than 50% of the session was spent on counseling and/or coordination of care Reason for contiued inpatient stay Substantial Risk for: inability to function, rapid decompensation and med/psych decompensation
[2020-11-06 18:00] VITALS: BP 112/55; PULSE 59; TEMP 36.9; O2SAT 99
[2020-11-06] MEDS: Donepezil HCl 10 MG TABLET PO (22:10)
[2020-11-07 06:00] VITALS: BP 154/67; PULSE 68; RESP 18; TEMP 35.7; O2SAT 98
[2020-11-07] MEDS: Levothyroxine Sodium 125 MCG TABLET PO (06:18)
[2020-11-07 06:24] LABS: MANUAL DIFF FLAG NO
[2020-11-07 06:25] LABS: Basophils Percent Auto 0.5 % (0-2); Eosinophils Absolute Auto 0.6 X10*3/uL (0.0-0.4); Eosinophils Percent Auto 8.3 % (0-4); Hematocrit 32.4 % (37-47); Hemoglobin 10.3 g/dl (12.0-16.0); Imm Gran Abs Auto 0.03 X10*3/uL (0.00-0.03); Imm Gran Pct Auto 0.4 % (0.0-0.4); Lymphocytes Absolute Auto 3.2 X10*3/uL (1.2-4.9); Lymphocytes Percent Auto 41.8 % (20-40); Mean Corpuscular HGB Conc 31.8 g/dl (31.0-35.0); Mean Corpuscular Hemoglobin 31.8 pg (27.0-33.0); Monocytes Absolute Auto 0.8 X10*3/uL (0.1-1.2); Monocytes Percent Auto 10.2 % (2-11); Neutrophils Percent Auto 38.8 % (45-73); Platelet Count 166 X10*3/uL (160-400); Red Blood Count 3.24 X10*6/uL (4.20-5.50); Red Cell Distribution Width 16.3 % (11.0-16.0); White Blood Count 7.8 X10*3/uL (4.8-10.8)
[2020-11-07 06:50] LABS: Valproate 47.3 mcg/mL (50.0-100.0)
[2020-11-07 06:56] LABS: Alanine Aminotransferase 11 U/L (0-31); Albumin Level 3.4 g/dL (3.5-5.0); Alkaline Phosphatase 73 U/L (39-117); Anion Gap 11 (12-20); Aspartate Amino Transferase 18 U/L (5-31); Bilirubin Direct < 0.2 mg/dL (0.0-0.5); Bilirubin Total 0.2 mg/dL (0.0-1.0); Blood Urea Nitrogen 24 mg/dL (9-16); Calcium 9.5 mg/dL (8.4-10.2); Carbon Dioxide 28 mmol/L (22-29); Chloride 106 mmol/L (96-108); Creatinine Clr Calc Pharmacy 46.4; Estimated Glomerular Filt Rate 53; Glucose Random 150 mg/dL (60-115); Potassium 4.6 mmol/L (3.3-5.1); Sodium 140 mmol/L (135-145); Total Protein 7.1 g/dL (6.5-8.0)
[2020-11-07 08:46] VITALS: BP 161/70; PULSE 66
[2020-11-07] MEDS: lisinopriL 5 MG TABLET PO (08:46)
[2020-11-07] MEDS: Aspirin 81 MG TAB.CHEW PO (08:47)
[2020-11-07] MEDS: Famotidine 20 MG TABLET 40 MG PO (08:49)
[2020-11-07] MEDS: Cholecalciferol (Vitamin D3) 25 MCG TABLET PO (08:49)
[2020-11-07] MEDS: allopurinoL 300 MG TABLET PO (08:50)
[2020-11-07] MEDS: Magnesium Oxide 400 MG TABLET PO ×2 (08:50→20:17)
[2020-11-07] MEDS: FLUoxetine HCl 20 MG CAPSULE PO (08:50)
[2020-11-07 08:51] VITALS: BP 161/70; PULSE 66
[2020-11-07] MEDS: amLODIPine Besylate 5 MG TABLET PO (08:51)
[2020-11-07 08:55] VITALS: BP 161/70; PULSE 66
[2020-11-07] MEDS: Metoprolol Succinate ER 50 MG TAB.ER.24H PO (08:55)
[2020-11-07] MEDS: Cyanocobalamin (Vitamin B-12) 100 MCG TABLET PO (08:55)
[2020-11-07] MEDS: Sennosides 8.6 MG TABLET PO ×2 (08:56→20:17)
--- NOTE | 2020-11-07 13:48 | P.PNPSI_ITS ---
Subjective Subjective Date of Service: 11/07/20 Reason For Visit: Bipolar Disorder unspecified Interim History: Remains with poor memory, she has not showed any psychotic symptom or violent behavior since she arrived. Review of Systems Acute medical concerns: No Medical Review of Systems: unchanged Mental Status Exam Mental Status Exam Patient Appearance: Well Grooomed Patient Orientation: Person, Place and Time Level of Consciousness: Awake Patient Behavior: Appropriate Mood Description: Withdrawn and Appropriate Affect Description: Constricted Patient Cognition Impaired: No Ability to Follow Directions: Good Speech Pattern: Clear Hallucinations: None Delusions: Not Present Thought Process: Disoriented Thought Content: positive for Circumstantial Judgement: Fair Diagnostics Vital Signs (24Hr): Vital Signs - 24 hr 11/06/20 18:00 11/07/20 06:00 11/07/20 08:46 Temperature 98.4 F 96.2 F L Pulse Rate 59 68 66 Respiratory Rate 18 Blood Pressure 112/55 L 154/67 H 161/70 H Pulse Oximetry 99 98 11/07/20 08:51 11/07/20 08:55 Temperature Pulse Rate 66 66 Respiratory Rate Blood Pressure 161/70 H 161/70 H Pulse Oximetry Body Mass Index 22.9 Labs Results: 11/07/20 06:14 11/07/20 06:14 Labs: Laboratory Results - last 48 hr 11/07/20 11/07/20 06:14 06:14 WBC 7.8 RBC 3.24 L Hgb 10.3 L Hct 32.4 L MCV 100.0 H MCH 31.8 MCHC 31.8 RDW 16.3 H Plt Count 166 MPV 10.0 Immature Gran % (Auto) 0.4 Neut % (Auto) 38.8 L Lymph % (Auto) 41.8 H [place] % (Auto) 10.2 Eos % (Auto) 8.3 H Baso % (Auto) 0.5 Lymph # (Auto) 3.2 [place] # (Auto) 0.8 Eos # (Auto) 0.6 H Baso # (Auto) 0.0 Abs Immat Gran (auto) 0.03 Absolute Neuts (auto) 3.0 Absolute Nucleated RBC 0.000 Nucleated RBC % (auto) 0.0 Sodium 140 Potassium 4.6 Chloride 106 Carbon Dioxide 28 Anion Gap 11 L BUN 24 H Creatinine 1.01 Estim Creat Clear Calc 46.4 Estimated GFR 53 Random Glucose 150 H Calcium 9.5 Total Bilirubin 0.2 Direct Bilirubin < 0.2 AST 18 ALT 11 Alkaline Phosphatase 73 Total Protein 7.1 Albumin 3.4 L Valproic Acid 47.3 L Medications Medications Current Medications Generic Name Dose Route Start Last Admin Trade Name Justinq PRN Reason Stop Dose Admin Acetaminophen 650 mg 10/26/20 03:14 Acetaminophen 325 Mg Tablet PO Q4H PRN moderate pain Allopurinol 300 mg 10/26/20 09:00 11/07/20 08:50 Allopurinol 300 Mg Tablet PO 300 mg DAILY MARIA ANTONIA Administration Amlodipine Besylate 5 mg 10/26/20 09:00 11/07/20 08:51 Amlodipine Besylate 5 Mg Tablet PO 5 mg DAILY MARIA ANTONIA Administration Protocol Aspirin 81 mg 10/26/20 09:00 11/07/20 08:47 Aspirin 81 Mg Tab.Chew PO 81 mg DAILY MARIA ANTONIA Administration Cyanocobalamin 100 mcg 10/26/20 09:00 11/07/20 08:55 Cyanocobalamin (Vitamin B-12) 100 Mcg Tablet PO 100 mcg DAILY MARIA ANTONIA Administration Donepezil HCl 10 mg 10/26/20 21:00 11/06/20 22:10 Donepezil Hcl 10 Mg Tablet PO 10 mg BEDTIME MARIA ANTONIA Administration Famotidine 40 mg 10/26/20 09:00 11/07/20 08:49 Famotidine 20 Mg Tablet PO 40 mg DAILY MARIA ANTONIA Administration Fluoxetine HCl 20 mg 10/26/20 09:00 11/07/20 08:50 Fluoxetine Hcl 20 Mg Capsule PO 20 mg DAILY MARIA ANTONIA Administration Levothyroxine Sodium 125 mcg 10/26/20 06:30 11/07/20 06:18 Levothyroxine Sodium 125 Mcg Tablet PO 125 mcg DAILY@0630 MARIA ANTONIA Administration Lisinopril 5 mg 10/26/20 09:00 11/07/20 08:46 Lisinopril 5 Mg Tablet PO 5 mg DAILY MARIA ANTONIA Administration Protocol Magnesium Oxide 400 mg 10/26/20 09:00 11/07/20 08:50 Magnesium Oxide 400 Mg Tablet PO 400 mg BID MARIA ANTONIA Administration Metoprolol Succinate 50 mg 10/26/20 09:00 11/07/20 08:55 Metoprolol Succinate Er 50 Mg Tab.Er.24h PO 50 mg DAILY MARIA ANTONIA Administration Protocol Senna 8.6 mg 10/26/20 09:00 11/07/20 08:56 Sennosides 8.6 Mg Tablet PO 8.6 mg BID MARIA ANTONIA Administration Valproic Acid 750 mg 10/26/20 21:00 11/06/20 22:10 Valproic Acid (As Sodium Salt) 250 Mg/5 Ml Solution PO 750 mg BEDTIME MARIA ANTONIA Administration Valproic Acid 500 mg 10/26/20 09:00 11/07/20 08:52 Valproic Acid (As Sodium Salt) 250 Mg/5 Ml Solution PO 500 mg DAILY MARIA ANTONIA Administration Vitamin D 25 mcg 10/26/20 09:00 11/07/20 08:49 Cholecalciferol (Vitamin D3) 25 Mcg Tablet PO 25 mcg DAILY MARIA ANTONIA Administration Allergies Allergies Allergy/AdvReac Type Severity Reaction Status Date / Time No Known Allergies Allergy Verified 10/25/20 20:56 Assessment & Plan Assessment & Plan (1) Bipolar 1 disorder: Status: Acute Code(s): F31.9 - Bipolar disorder, unspecified Assessment and Plan: No change from primary treatments Increase Depakote from 1250 to 1500 since VALP is consistently below 47. Greater than 50% of the session was spent on counseling and/or coordination of care Reason for contiued inpatient stay Substantial Risk for: inability to function, rapid decompensation and med/psych decompensation
[2020-11-07 18:00] VITALS: BP 162/73; PULSE 63; RESP 16; TEMP 35.9; O2SAT 100
[2020-11-07] MEDS: Donepezil HCl 10 MG TABLET PO (20:18)
[2020-11-08 06:00] VITALS: BP 168/73; PULSE 64; RESP 17; TEMP 36.1; O2SAT 98
[2020-11-08] MEDS: Levothyroxine Sodium 125 MCG TABLET PO (06:32)
[2020-11-08 08:37] VITALS: BP 125/57; PULSE 64
[2020-11-08] MEDS: lisinopriL 5 MG TABLET PO (08:37)
[2020-11-08] MEDS: Aspirin 81 MG TAB.CHEW PO (08:38)
[2020-11-08] MEDS: amLODIPine Besylate 5 MG TABLET PO (08:38)
[2020-11-08] MEDS: Cyanocobalamin (Vitamin B-12) 100 MCG TABLET PO (08:38)
[2020-11-08] MEDS: Metoprolol Succinate ER 50 MG TAB.ER.24H PO (08:38)
[2020-11-08] MEDS: Sennosides 8.6 MG TABLET PO ×2 (08:38→20:31)
[2020-11-08] MEDS: FLUoxetine HCl 20 MG CAPSULE PO (08:39)
[2020-11-08] MEDS: Famotidine 20 MG TABLET 40 MG PO (08:39)
[2020-11-08] MEDS: Magnesium Oxide 400 MG TABLET PO ×2 (08:39→20:31)
[2020-11-08] MEDS: Cholecalciferol (Vitamin D3) 25 MCG TABLET PO (08:39)
[2020-11-08] MEDS: allopurinoL 300 MG TABLET PO (08:39)
--- NOTE | 2020-11-08 11:14 | HO.PSYCHPN ---
Subjective Subjective Date of Service: 11/08/20 Reason For Visit: Bipolar Disorder unspecified Interim History: The patient has been cooperative and pleasant, hard of hearing since her hearing aids ran out of batteries Review of Systems Acute medical concerns: No Medical Review of Systems: unchanged Mental Status Exam Mental Status Exam Patient Appearance: Well Grooomed Patient Orientation: Person and Place Level of Consciousness: Awake Patient Behavior: Appropriate Ability to Follow Directions: Good Speech Pattern: Clear Memory Description: Immediate Impaired Hallucinations: None Delusions: Not Present Thought Process: Evasive and Slowed Thinking Thought Content: positive for Poverty of Content Judgement: Fair Diagnostics Vital Signs (24Hr): Vital Signs - 24 hr 11/07/20 18:00 11/08/20 06:00 11/08/20 08:37 Temperature 96.7 F L 97 F Pulse Rate 63 64 64 Respiratory Rate 16 17 Blood Pressure 162/73 H 168/73 H 125/57 L Pulse Oximetry 100 98 Body Mass Index 22.9 Labs Results: 11/07/20 06:14 11/07/20 06:14 Labs: Laboratory Results - last 48 hr 11/07/20 11/07/20 06:14 06:14 WBC 7.8 RBC 3.24 L Hgb 10.3 L Hct 32.4 L MCV 100.0 H MCH 31.8 MCHC 31.8 RDW 16.3 H Plt Count 166 MPV 10.0 Immature Gran % (Auto) 0.4 Neut % (Auto) 38.8 L Lymph % (Auto) 41.8 H [place] % (Auto) 10.2 Eos % (Auto) 8.3 H Baso % (Auto) 0.5 Lymph # (Auto) 3.2 [place] # (Auto) 0.8 Eos # (Auto) 0.6 H Baso # (Auto) 0.0 Abs Immat Gran (auto) 0.03 Absolute Neuts (auto) 3.0 Absolute Nucleated RBC 0.000 Nucleated RBC % (auto) 0.0 Sodium 140 Potassium 4.6 Chloride 106 Carbon Dioxide 28 Anion Gap 11 L BUN 24 H Creatinine 1.01 Estim Creat Clear Calc 46.4 Estimated GFR 53 Random Glucose 150 H Calcium 9.5 Total Bilirubin 0.2 Direct Bilirubin < 0.2 AST 18 ALT 11 Alkaline Phosphatase 73 Total Protein 7.1 Albumin 3.4 L Valproic Acid 47.3 L Medications Medications Current Medications Generic Name Dose Route Start Last Admin Trade Name Freq PRN Reason Stop Dose Admin Acetaminophen 650 mg 10/26/20 03:14 Acetaminophen 325 Mg Tablet PO Q4H PRN moderate pain Allopurinol 300 mg 10/26/20 09:00 11/08/20 08:39 Allopurinol 300 Mg Tablet PO 300 mg DAILY MARIA ANTONIA Administration Amlodipine Besylate 5 mg 10/26/20 09:00 11/08/20 08:38 Amlodipine Besylate 5 Mg Tablet PO 5 mg DAILY MARIA ANTONIA Administration Protocol Aspirin 81 mg 10/26/20 09:00 11/08/20 08:38 Aspirin 81 Mg Tab.Chew PO 81 mg DAILY MARIA ANTONIA Administration Cyanocobalamin 100 mcg 10/26/20 09:00 11/08/20 08:38 Cyanocobalamin (Vitamin B-12) 100 Mcg Tablet PO 100 mcg DAILY MARIA ANTONIA Administration Donepezil HCl 10 mg 10/26/20 21:00 11/07/20 20:18 Donepezil Hcl 10 Mg Tablet PO 10 mg BEDTIME MARIA ANTONIA Administration Famotidine 40 mg 10/26/20 09:00 11/08/20 08:39 Famotidine 20 Mg Tablet PO 40 mg DAILY MARIA ANTONIA Administration Fluoxetine HCl 20 mg 10/26/20 09:00 11/08/20 08:39 Fluoxetine Hcl 20 Mg Capsule PO 20 mg DAILY MARIA ANTONIA Administration Levothyroxine Sodium 125 mcg 10/26/20 06:30 11/08/20 06:32 Levothyroxine Sodium 125 Mcg Tablet PO 125 mcg DAILY@0630 MARIA ANTONIA Administration Lisinopril 5 mg 10/26/20 09:00 11/08/20 08:37 Lisinopril 5 Mg Tablet PO 5 mg DAILY MARIA ANTONIA Administration Protocol Magnesium Oxide 400 mg 10/26/20 09:00 11/08/20 08:39 Magnesium Oxide 400 Mg Tablet PO 400 mg BID MARIA ANTONIA Administration Metoprolol Succinate 50 mg 10/26/20 09:00 11/08/20 08:38 Metoprolol Succinate Er 50 Mg Tab.Er.24h PO 50 mg DAILY MARIA ANTONIA Administration Protocol Senna 8.6 mg 10/26/20 09:00 11/08/20 08:38 Sennosides 8.6 Mg Tablet PO 8.6 mg BID MARIA ANTONIA Administration Valproic Acid 500 mg 10/26/20 09:00 11/08/20 08:39 Valproic Acid (As Sodium Salt) 250 Mg/5 Ml Solution PO 500 mg DAILY MARIA ANTONIA Administration Valproic Acid 1,000 mg 11/07/20 21:00 11/07/20 20:17 Valproic Acid (As Sodium Salt) 250 Mg/5 Ml Solution PO 1,000 mg BEDTIME MARIA ANTONIA Administration Vitamin D 25 mcg 10/26/20 09:00 11/08/20 08:39 Cholecalciferol (Vitamin D3) 25 Mcg Tablet PO 25 mcg DAILY MARIA ANTONIA Administration Allergies Allergies Allergy/AdvReac Type Severity Reaction Status Date / Time No Known Allergies Allergy Verified 10/25/20 20:56 Assessment & Plan Assessment & Plan (1) Bipolar 1 disorder: Status: Acute Code(s): F31.9 - Bipolar disorder, unspecified Assessment and Plan: No change from primary treatments Increase Depakote from 1250 to 1500 since VALP is consistently below 47. VALP tomorrow AM Greater than 50% of the session was spent on counseling and/or coordination of care Reason for contiued inpatient stay Substantial Risk for: inability to function, rapid decompensation and med/psych decompensation
[2020-11-08 17:43] VITALS: BP 148/67; PULSE 60; RESP 16; TEMP 36.6; O2SAT 99
[2020-11-08] MEDS: Donepezil HCl 10 MG TABLET PO (20:31)
[2020-11-09] MEDS: Levothyroxine Sodium 125 MCG TABLET PO (05:51)
[2020-11-09 05:55] VITALS: BP 164/72; PULSE 66; RESP 18; TEMP 36.2; O2SAT 97
[2020-11-09 06:18] VITALS: BMI 23.3
[2020-11-09 08:00] LABS: Valproate 52.2 mcg/mL (50.0-100.0)
[2020-11-09 08:43] VITALS: BP 164/68; PULSE 65
[2020-11-09] MEDS: lisinopriL 5 MG TABLET PO (08:43)
[2020-11-09] MEDS: Magnesium Oxide 400 MG TABLET PO ×2 (08:44→20:14)
[2020-11-09] MEDS: allopurinoL 300 MG TABLET PO (08:44)
[2020-11-09] MEDS: Cyanocobalamin (Vitamin B-12) 100 MCG TABLET PO (08:44)
[2020-11-09] MEDS: FLUoxetine HCl 20 MG CAPSULE PO (08:45)
[2020-11-09] MEDS: Sennosides 8.6 MG TABLET PO ×2 (08:45→20:13)
[2020-11-09] MEDS: Cholecalciferol (Vitamin D3) 25 MCG TABLET PO (08:45)
[2020-11-09 08:46] VITALS: BP 164/68; PULSE 65
[2020-11-09] MEDS: Metoprolol Succinate ER 50 MG TAB.ER.24H PO (08:46)
[2020-11-09] MEDS: Aspirin 81 MG TAB.CHEW PO (08:46)
[2020-11-09 08:47] VITALS: BP 164/68; PULSE 65
[2020-11-09] MEDS: Famotidine 20 MG TABLET 40 MG PO (08:47)
[2020-11-09] MEDS: amLODIPine Besylate 5 MG TABLET PO (08:47)
--- NOTE | 2020-11-09 11:50 | HO.PSYCHPN ---
Subjective Subjective Date of Service: 11/09/20 Reason For Visit: Bipolar Disorder unspecified Interim History: The patient remains cooperative with team but she wants to be discharged as soon as it is possible. No accusatory statements described on crisis. Review of Systems Acute medical concerns: No Medical Review of Systems: unchanged Mental Status Exam Mental Status Exam Patient Appearance: Well Grooomed Patient Orientation: Person Level of Consciousness: Awake Patient Behavior: Cooperative Mood Description: Constricted Affect Description: Calm Patient Cognition Impaired: Yes Ability to Follow Directions: Good Speech Pattern: Clear Memory Description: Immediate Impaired Hallucinations: None Delusions: Not Present Thought Process: Distracted Thought Content: positive for Circumstantial and positive for Poverty of Content Judgement: Fair Diagnostics Vital Signs (24Hr): Vital Signs - 24 hr 11/08/20 17:43 11/09/20 05:55 11/09/20 08:43 Temperature 97.8 F 97.2 F Pulse Rate 60 66 65 Respiratory Rate 16 18 Blood Pressure 148/67 H 164/72 H 164/68 H Pulse Oximetry 99 97 11/09/20 08:46 11/09/20 08:47 Temperature Pulse Rate 65 65 Respiratory Rate Blood Pressure 164/68 H 164/68 H Pulse Oximetry Body Mass Index 23.3 Labs Results: 11/07/20 06:14 11/07/20 06:14 Labs: Laboratory Results - last 48 hr 11/09/20 07:04 Valproic Acid 52.2 Medications Medications Current Medications Generic Name Dose Route Start Last Admin Trade Name Freq PRN Reason Stop Dose Admin Acetaminophen 650 mg 10/26/20 03:14 Acetaminophen 325 Mg Tablet PO Q4H PRN moderate pain Allopurinol 300 mg 10/26/20 09:00 11/09/20 08:44 Allopurinol 300 Mg Tablet PO 300 mg DAILY MARIA ANTONIA Administration Amlodipine Besylate 5 mg 10/26/20 09:00 11/09/20 08:47 Amlodipine Besylate 5 Mg Tablet PO 5 mg DAILY MARIA ANTONIA Administration Protocol Aspirin 81 mg 10/26/20 09:00 11/09/20 08:46 Aspirin 81 Mg Tab.Chew PO 81 mg DAILY MARIA ANTONIA Administration Cyanocobalamin 100 mcg 10/26/20 09:00 11/09/20 08:44 Cyanocobalamin (Vitamin B-12) 100 Mcg Tablet PO 100 mcg DAILY MARIA ANTONIA Administration Donepezil HCl 10 mg 10/26/20 21:00 11/08/20 20:31 Donepezil Hcl 10 Mg Tablet PO 10 mg BEDTIME MARIA ANTONIA Administration Famotidine 40 mg 10/26/20 09:00 11/09/20 08:47 Famotidine 20 Mg Tablet PO 40 mg DAILY MARIA ANTONIA Administration Fluoxetine HCl 20 mg 10/26/20 09:00 11/09/20 08:45 Fluoxetine Hcl 20 Mg Capsule PO 20 mg DAILY MARIA ANTONIA Administration Levothyroxine Sodium 125 mcg 10/26/20 06:30 11/09/20 05:51 Levothyroxine Sodium 125 Mcg Tablet PO 125 mcg DAILY@0630 MARIA ANTONIA Administration Lisinopril 5 mg 10/26/20 09:00 11/09/20 08:43 Lisinopril 5 Mg Tablet PO 5 mg DAILY MARIA ANTONIA Administration Protocol Magnesium Oxide 400 mg 10/26/20 09:00 11/09/20 08:44 Magnesium Oxide 400 Mg Tablet PO 400 mg BID MARIA ANTONIA Administration Metoprolol Succinate 50 mg 10/26/20 09:00 11/09/20 08:46 Metoprolol Succinate Er 50 Mg Tab.Er.24h PO 50 mg DAILY MARIA ANTONIA Administration Protocol Senna 8.6 mg 10/26/20 09:00 11/09/20 08:45 Sennosides 8.6 Mg Tablet PO 8.6 mg BID MARIA ANTONIA Administration Valproic Acid 500 mg 10/26/20 09:00 11/09/20 08:48 Valproic Acid (As Sodium Salt) 250 Mg/5 Ml Solution PO 500 mg DAILY MARIA ANTONIA Administration Valproic Acid 1,000 mg 11/07/20 21:00 11/08/20 20:35 Valproic Acid (As Sodium Salt) 250 Mg/5 Ml Solution PO 1,000 mg BEDTIME MARIA ANTONIA Administration Vitamin D 25 mcg 10/26/20 09:00 11/09/20 08:45 Cholecalciferol (Vitamin D3) 25 Mcg Tablet PO 25 mcg DAILY MARIA ANTONIA Administration Allergies Allergies Allergy/AdvReac Type Severity Reaction Status Date / Time No Known Allergies Allergy Verified 10/25/20 20:56 Assessment & Plan Assessment & Plan (1) Bipolar 1 disorder: Status: Acute Code(s): F31.9 - Bipolar disorder, unspecified Assessment and Plan: No change from primary treatments Increase Depakote from 1250 to 1500 since VALP is consistently below 47. VALP is 52. Greater than 50% of the session was spent on counseling and/or coordination of care Reason for contiued inpatient stay Substantial Risk for: inability to function, rapid decompensation and med/psych decompensation
[2020-11-09 18:00] VITALS: BP 138/61; PULSE 61; RESP 17; TEMP 36.5; O2SAT 98
[2020-11-09] MEDS: Donepezil HCl 10 MG TABLET PO (20:13)
[2020-11-10] MEDS: Levothyroxine Sodium 125 MCG TABLET PO (05:46)
[2020-11-10 05:56] VITALS: BP 136/71; PULSE 62; RESP 18; TEMP 36.6; O2SAT 96
[2020-11-10 10:17] VITALS: BP 128/76; PULSE 66
[2020-11-10] MEDS: amLODIPine Besylate 5 MG TABLET PO (10:17)
[2020-11-10] MEDS: Metoprolol Succinate ER 50 MG TAB.ER.24H PO (10:17)
[2020-11-10] MEDS: Aspirin 81 MG TAB.CHEW PO (10:18)
[2020-11-10] MEDS: Cyanocobalamin (Vitamin B-12) 100 MCG TABLET PO (10:18)
[2020-11-10] MEDS: Cholecalciferol (Vitamin D3) 25 MCG TABLET PO (10:18)
[2020-11-10] MEDS: allopurinoL 300 MG TABLET PO (10:18)
[2020-11-10] MEDS: Famotidine 20 MG TABLET 40 MG PO (10:18)
[2020-11-10] MEDS: lisinopriL 5 MG TABLET PO (10:18)
[2020-11-10] MEDS: Magnesium Oxide 400 MG TABLET PO ×2 (10:19→20:48)
[2020-11-10] MEDS: Sennosides 8.6 MG TABLET PO ×2 (10:19→20:48)
[2020-11-10] MEDS: FLUoxetine HCl 20 MG CAPSULE PO (10:19)
--- NOTE | 2020-11-10 13:02 | HO.PSYCHPN ---
Subjective Subjective Date of Service: 11/10/20 Reason For Visit: Bipolar Disorder unspecified Interim History: The patient remains pleasant and confused at times, no evidence of psychotic symptoms. She was accepted at a SNF next Friday but she doesn't want to go there. She wants to recant her HCP and go somewhere alse Review of Systems Acute medical concerns: No Medical Review of Systems: unchanged Mental Status Exam Mental Status Exam Patient Appearance: Well Grooomed Patient Orientation: Person, Place and Time Level of Consciousness: Awake Patient Behavior: Guarded and Cooperative Mood Description: Withdrawn Affect Description: Constricted Patient Cognition Impaired: Yes Ability to Follow Directions: Good Speech Pattern: Clear Hallucinations: None Delusions: Not Present Thought Process: Slowed Thinking Thought Content: positive for [place], positive for Circumstantial and positive for Perseveration Judgement: Fair Diagnostics Vital Signs (24Hr): Vital Signs - 24 hr 11/09/20 18:00 11/10/20 05:56 11/10/20 10:17 Temperature 97.7 F 98 F Pulse Rate 61 62 66 Respiratory Rate 17 18 Blood Pressure 138/61 136/71 128/76 Pulse Oximetry 98 96 Body Mass Index 23.3 Labs Results: 11/07/20 06:14 11/07/20 06:14 Labs: Laboratory Results - last 48 hr 11/09/20 07:04 Valproic Acid 52.2 Medications Medications Current Medications Generic Name Dose Route Start Last Admin Trade Name Justinq PRN Reason Stop Dose Admin Acetaminophen 650 mg 10/26/20 03:14 Acetaminophen 325 Mg Tablet PO Q4H PRN moderate pain Allopurinol 300 mg 10/26/20 09:00 11/10/20 10:18 Allopurinol 300 Mg Tablet PO 300 mg DAILY MARIA ANTONIA Administration Amlodipine Besylate 5 mg 10/26/20 09:00 11/10/20 10:17 Amlodipine Besylate 5 Mg Tablet PO 5 mg DAILY MARIA ANTONIA Administration Protocol Aspirin 81 mg 10/26/20 09:00 11/10/20 10:18 Aspirin 81 Mg Tab.Chew PO 81 mg DAILY MARIA ANTONIA Administration Cyanocobalamin 100 mcg 10/26/20 09:00 11/10/20 10:18 Cyanocobalamin (Vitamin B-12) 100 Mcg Tablet PO 100 mcg DAILY MARIA ANTONIA Administration Donepezil HCl 10 mg 10/26/20 21:00 11/09/20 20:13 Donepezil Hcl 10 Mg Tablet PO 10 mg BEDTIME MARIA ANTONIA Administration Famotidine 40 mg 10/26/20 09:00 11/10/20 10:18 Famotidine 20 Mg Tablet PO 40 mg DAILY MARIA ANTONIA Administration Fluoxetine HCl 20 mg 10/26/20 09:00 11/10/20 10:19 Fluoxetine Hcl 20 Mg Capsule PO 20 mg DAILY MARIA ANTONIA Administration Levothyroxine Sodium 125 mcg 10/26/20 06:30 11/10/20 05:46 Levothyroxine Sodium 125 Mcg Tablet PO 125 mcg DAILY@0630 MARIA ANTONIA Administration Lisinopril 5 mg 10/26/20 09:00 11/10/20 10:18 Lisinopril 5 Mg Tablet PO 5 mg DAILY MARIA ANTONIA Administration Protocol Magnesium Oxide 400 mg 10/26/20 09:00 11/10/20 10:19 Magnesium Oxide 400 Mg Tablet PO 400 mg BID MARIA ANTONIA Administration Metoprolol Succinate 50 mg 10/26/20 09:00 11/10/20 10:17 Metoprolol Succinate Er 50 Mg Tab.Er.24h PO 50 mg DAILY MARIA ANTONIA Administration Protocol Senna 8.6 mg 10/26/20 09:00 11/10/20 10:19 Sennosides 8.6 Mg Tablet PO 8.6 mg BID MARIA ANTONIA Administration Valproic Acid 500 mg 10/26/20 09:00 11/10/20 10:19 Valproic Acid (As Sodium Salt) 250 Mg/5 Ml Solution PO 500 mg DAILY MARIA ANTONIA Administration Valproic Acid 1,000 mg 11/07/20 21:00 11/09/20 20:14 Valproic Acid (As Sodium Salt) 250 Mg/5 Ml Solution PO 1,000 mg BEDTIME MARIA ANTONIA Administration Vitamin D 25 mcg 10/26/20 09:00 11/10/20 10:18 Cholecalciferol (Vitamin D3) 25 Mcg Tablet PO 25 mcg DAILY MARIA ANTONIA Administration Allergies Allergies Allergy/AdvReac Type Severity Reaction Status Date / Time No Known Allergies Allergy Verified 10/25/20 20:56 Assessment & Plan Assessment & Plan (1) Bipolar 1 disorder: Status: Acute Code(s): F31.9 - Bipolar disorder, unspecified Assessment and Plan: No change from primary treatments Increase Depakote from 1250 to 1500 since VALP is consistently below 47. VALP is 52. Greater than 50% of the session was spent on counseling and/or coordination of care Reason for contiued inpatient stay Substantial Risk for: inability to function, stable for discharge and med/psych decompensation
[2020-11-10 16:15] VITALS: BP 163/70; PULSE 58; RESP 16; TEMP 36.1; O2SAT 99
[2020-11-10] MEDS: Donepezil HCl 10 MG TABLET PO (20:48)
[2020-11-11] MEDS: Levothyroxine Sodium 125 MCG TABLET PO (06:42)
[2020-11-11 09:36] VITALS: BP 165/77; PULSE 64; RESP 16; TEMP 36.7; O2SAT 98
[2020-11-11 09:38] VITALS: BP 165/77; PULSE 62
[2020-11-11] MEDS: lisinopriL 5 MG TABLET PO (09:38)
[2020-11-11] MEDS: Sennosides 8.6 MG TABLET PO ×2 (09:38→19:36)
[2020-11-11] MEDS: allopurinoL 300 MG TABLET PO (09:38)
[2020-11-11] MEDS: FLUoxetine HCl 20 MG CAPSULE PO (09:38)
[2020-11-11 09:39] VITALS: BP 165/77; PULSE 62
[2020-11-11] MEDS: Cyanocobalamin (Vitamin B-12) 100 MCG TABLET PO (09:39)
[2020-11-11] MEDS: Aspirin 81 MG TAB.CHEW PO (09:39)
[2020-11-11] MEDS: Magnesium Oxide 400 MG TABLET PO ×2 (09:39→19:36)
[2020-11-11] MEDS: Metoprolol Succinate ER 50 MG TAB.ER.24H PO (09:39)
[2020-11-11] MEDS: Cholecalciferol (Vitamin D3) 25 MCG TABLET PO (09:39)
[2020-11-11] MEDS: amLODIPine Besylate 5 MG TABLET PO (09:39)
[2020-11-11] MEDS: Famotidine 20 MG TABLET 40 MG PO (09:40)
[2020-11-11 10:21] VITALS: BP 165/77; PULSE 62; RESP 16; TEMP 36.7; O2SAT 98
--- NOTE | 2020-11-11 17:08 | PC.NURSE ---
Patient is alert and oriented x 3. Dressed in own clothing with appropriate hygiene. Patient reports poor sleep overnight and states she is tired today. Patient is isolative to self and room for most of shift, attending one morning group.
[2020-11-11 17:44] VITALS: BP 156/68; PULSE 59; RESP 16; TEMP 36.7; O2SAT 96
[2020-11-11] MEDS: Donepezil HCl 10 MG TABLET PO (19:36)
--- NOTE | 2020-11-12 00:27 | HO.PSYCHPN ---
Subjective Subjective Date of Service: 11/12/20 Reason For Visit: Bipolar Disorder unspecified Interim History: Late entry. This note reflects 11/11/20 date of service. The patient remains pleasant and confused at times, no evidence of psychotic symptoms. She was accepted at a SNF next Friday. Voices no concerns. She says she is feeling the best she has felt in a long time. Aware she may be going to a [facility]. Says she had bad experiences in at least one of them. Medication Compliance: Yes Review of Systems Acute medical concerns: No Review of Systems Review of Systems Unremarkable Yes all other systems are reviewed and are negative and Unobtainable due to mental status Constitutional: Denies chills and Denies fever(s) Cardiovascular: Denies chest pain Respiratory: Denies cough Gastrointestinal: Denies abdominal pain Mental Status Exam Mental Status Exam Narrative: casually dressed. Slightly disheveled. Irritable. Guarded. No evidence of SI or HI. Does appear to have some paranoia. Denies hallucinations. Insight and judgment does appear limited Patient Appearance: Well Grooomed Patient Orientation: Person, Place and Time Level of Consciousness: Awake Patient Behavior: Guarded and Cooperative Behavior Comments: continues to feel she was targeted in these things due to her choice to love another woman Mood Description: Withdrawn Affect Description: Constricted Patient Cognition Impaired: Yes Ability to Follow Directions: Good Speech Pattern: Clear Memory Description: Immediate Impaired Judgement: Fair Diagnostics Vital Signs (24Hr): Vital Signs - 24 hr 11/11/20 09:36 11/11/20 09:38 11/11/20 09:39 Temperature 98.0 F Pulse Rate 64 62 62 Respiratory Rate 16 Blood Pressure 165/77 H 165/77 H 165/77 H Pulse Oximetry 98 11/11/20 10:21 11/11/20 17:44 Temperature 98.0 F 98.1 F Pulse Rate 62 59 Respiratory Rate 16 16 Blood Pressure 165/77 H 156/68 H Pulse Oximetry 98 96 Body Mass Index 23.3 Labs Results: 11/07/20 06:14 11/07/20 06:14 Medications Medications Current Medications Generic Name Dose Route Start Last Admin Trade Name Freq PRN Reason Stop Dose Admin Acetaminophen 650 mg 10/26/20 03:14 Acetaminophen 325 Mg Tablet PO Q4H PRN moderate pain Allopurinol 300 mg 10/26/20 09:00 11/11/20 09:38 Allopurinol 300 Mg Tablet PO 300 mg DAILY MARIA ANTONIA Administration Amlodipine Besylate 5 mg 10/26/20 09:00 11/11/20 09:39 Amlodipine Besylate 5 Mg Tablet PO 5 mg DAILY MARIA ANTONIA Administration Protocol Aspirin 81 mg 10/26/20 09:00 11/11/20 09:39 Aspirin 81 Mg Tab.Chew PO 81 mg DAILY MARIA ANTONIA Administration Cyanocobalamin 100 mcg 10/26/20 09:00 11/11/20 09:39 Cyanocobalamin (Vitamin B-12) 100 Mcg Tablet PO 100 mcg DAILY MARIA ANTONIA Administration Donepezil HCl 10 mg 10/26/20 21:00 11/11/20 19:36 Donepezil Hcl 10 Mg Tablet PO 10 mg BEDTIME MARIA ANTONIA Administration Famotidine 40 mg 10/26/20 09:00 11/11/20 09:40 Famotidine 20 Mg Tablet PO 40 mg DAILY MARIA ANTONIA Administration Fluoxetine HCl 20 mg 10/26/20 09:00 11/11/20 09:38 Fluoxetine Hcl 20 Mg Capsule PO 20 mg DAILY MARIA ANTONIA Administration Levothyroxine Sodium 125 mcg 10/26/20 06:30 11/11/20 06:42 Levothyroxine Sodium 125 Mcg Tablet PO 125 mcg DAILY@0630 MARIA ANTONIA Administration Lisinopril 5 mg 10/26/20 09:00 11/11/20 09:38 Lisinopril 5 Mg Tablet PO 5 mg DAILY MARIA ANTONIA Administration Protocol Magnesium Oxide 400 mg 10/26/20 09:00 11/11/20 19:36 Magnesium Oxide 400 Mg Tablet PO 400 mg BID MARIA ANTONIA Administration Metoprolol Succinate 50 mg 10/26/20 09:00 11/11/20 09:39 Metoprolol Succinate Er 50 Mg Tab.Er.24h PO 50 mg DAILY MARIA ANTONIA Administration Protocol Senna 8.6 mg 10/26/20 09:00 11/11/20 19:36 Sennosides 8.6 Mg Tablet PO 8.6 mg BID MARIA ANTONIA Administration Valproic Acid 500 mg 10/26/20 09:00 11/11/20 09:38 Valproic Acid (As Sodium Salt) 250 Mg/5 Ml Solution PO 500 mg DAILY MARIA ANTONIA Administration Valproic Acid 1,000 mg 11/07/20 21:00 11/11/20 19:36 Valproic Acid (As Sodium Salt) 250 Mg/5 Ml Solution PO 1,000 mg BEDTIME MARIA ANTONIA Administration Vitamin D 25 mcg 10/26/20 09:00 11/11/20 09:39 Cholecalciferol (Vitamin D3) 25 Mcg Tablet PO 25 mcg DAILY MARIA ANTONIA Administration Allergies Allergies Allergy/AdvReac Type Severity Reaction Status Date / Time No Known Allergies Allergy Verified 10/25/20 20:56 Assessment & Plan Assessment & Plan (1) Bipolar 1 disorder: Status: Acute Code(s): F31.9 - Bipolar disorder, unspecified Assessment and Plan: No change from primary treatments Greater than 50% of the session was spent on counseling and/or coordination of care Reason for contiued inpatient stay Substantial Risk for: inability to function
[2020-11-12 06:00] VITALS: BP 151/68; PULSE 64; RESP 18; TEMP 36.3; O2SAT 97
[2020-11-12] MEDS: Levothyroxine Sodium 125 MCG TABLET PO (06:01)
[2020-11-12 08:06] VITALS: BP 158/70; PULSE 60; RESP 16; TEMP 36.5; O2SAT 99
[2020-11-12] MEDS: Cholecalciferol (Vitamin D3) 25 MCG TABLET PO (08:07)
[2020-11-12 08:08] VITALS: BP 158/70; PULSE 60
[2020-11-12] MEDS: Metoprolol Succinate ER 50 MG TAB.ER.24H PO (08:08)
[2020-11-12] MEDS: Magnesium Oxide 400 MG TABLET PO ×2 (08:08→19:44)
[2020-11-12] MEDS: Aspirin 81 MG TAB.CHEW PO (08:08)
[2020-11-12] MEDS: amLODIPine Besylate 5 MG TABLET PO (08:08)
[2020-11-12] MEDS: FLUoxetine HCl 20 MG CAPSULE PO (08:08)
[2020-11-12] MEDS: allopurinoL 300 MG TABLET PO (08:08)
[2020-11-12] MEDS: Famotidine 20 MG TABLET 40 MG PO (08:08)
[2020-11-12] MEDS: Sennosides 8.6 MG TABLET PO ×2 (08:08→19:46)
[2020-11-12] MEDS: Cyanocobalamin (Vitamin B-12) 100 MCG TABLET PO (08:08)
[2020-11-12 08:09] VITALS: BP 158/70; PULSE 60
[2020-11-12] MEDS: lisinopriL 5 MG TABLET PO (08:09)
[2020-11-12 17:59] VITALS: BP 133/63; PULSE 58; RESP 18; TEMP 36.7; O2SAT 98
--- NOTE | 2020-11-12 18:32 | PC.NURSE ---
Patient alert and oriented x 4. Patient is present and social on the unit. Pleasant, calm, and cooperative with staff and peers. Patient has been particularly kind and helpful to other female peers who have been struggling with isolation and anxiety, taking advantage of opportunities to support peers in ordering their meals on paper menus and create social opportunities to play cards.
[2020-11-12] MEDS: Donepezil HCl 10 MG TABLET PO (19:46)
--- NOTE | 2020-11-12 23:16 | P.PNPSI_ITS ---
Subjective Subjective Date of Service: 11/12/20 Reason For Visit: Bipolar Disorder unspecified Interim History: The patient remains pleasant and confused at times, no evidence of psychotic symptoms. She was accepted at a SNF next Friday. Voices no concerns. She says she is feeling well. She is helping a fellow patient fill out her lunch menu. Aware she may be going to a [facility]. Says she had bad experiences in at least one of them. Review of Systems Review of Systems Unremarkable Yes all other systems are reviewed and are negative and Unobtainable due to mental status Constitutional: Denies chills and Denies fever(s) Cardiovascular: Denies chest pain Respiratory: Denies cough Gastrointestinal: Denies abdominal pain Mental Status Exam Mental Status Exam Narrative: casually dressed. Slightly disheveled. Irritable. Guarded. No evidence of SI or HI. Does appear to have some paranoia. Denies ronal lucinations. Insight and judgment does appear limited Patient Appearance: Well Grooomed Patient Orientation: Person, Place and Time Level of Consciousness: Awake Patient Behavior: Guarded and Cooperative Behavior Comments: continues to feel she was targeted in these things due to her choice to love another woman Mood Description: Withdrawn Affect Description: Constricted Patient Cognition Impaired: Yes Ability to Follow Directions: Good Speech Pattern: Clear Memory Description: Immediate Impaired Diagnostics Vital Signs (24Hr): Vital Signs - 24 hr 11/12/20 06:00 11/12/20 08:06 11/12/20 08:08 Temperature 97.4 F 97.7 F Pulse Rate 64 60 60 Respiratory Rate 18 16 Blood Pressure 151/68 H 158/70 H 158/70 H Pulse Oximetry 97 99 11/12/20 08:09 11/12/20 17:59 Temperature 98.0 F Pulse Rate 60 58 Respiratory Rate 18 Blood Pressure 158/70 H 133/63 Pulse Oximetry 98 Body Mass Index 23.3 Labs Results: 11/07/20 06:14 11/07/20 06:14 Medications Medications Current Medications Generic Name Dose Route Start Last Admin Trade Name Freq PRN Reason Stop Dose Admin Acetaminophen 650 mg 10/26/20 03:14 Acetaminophen 325 Mg Tablet PO Q4H PRN moderate pain Allopurinol 300 mg 10/26/20 09:00 11/12/20 08:08 Allopurinol 300 Mg Tablet PO 300 mg DAILY MARIA ANTONIA Administration Amlodipine Besylate 5 mg 10/26/20 09:00 11/12/20 08:08 Amlodipine Besylate 5 Mg Tablet PO 5 mg DAILY MARIA ANTONIA Administration Protocol Aspirin 81 mg 10/26/20 09:00 11/12/20 08:08 Aspirin 81 Mg Tab.Chew PO 81 mg DAILY MARIA ANTONIA Administration Cyanocobalamin 100 mcg 10/26/20 09:00 11/12/20 08:08 Cyanocobalamin (Vitamin B-12) 100 Mcg Tablet PO 100 mcg DAILY MARIA ANTONIA Administration Donepezil HCl 10 mg 10/26/20 21:00 11/12/20 19:46 Donepezil Hcl 10 Mg Tablet PO 10 mg BEDTIME MARIA ANTONIA Administration Famotidine 40 mg 10/26/20 09:00 11/12/20 08:08 Famotidine 20 Mg Tablet PO 40 mg DAILY MARIA ANTONIA Administration Fluoxetine HCl 20 mg 10/26/20 09:00 11/12/20 08:08 Fluoxetine Hcl 20 Mg Capsule PO 20 mg DAILY MARIA ANTONIA Administration Levothyroxine Sodium 125 mcg 10/26/20 06:30 11/12/20 06:01 Levothyroxine Sodium 125 Mcg Tablet PO 125 mcg DAILY@0630 MARIA ANTONIA Administration Lisinopril 5 mg 10/26/20 09:00 11/12/20 08:09 Lisinopril 5 Mg Tablet PO 5 mg DAILY MARIA ANTONIA Administration Protocol Magnesium Oxide 400 mg 10/26/20 09:00 11/12/20 19:44 Magnesium Oxide 400 Mg Tablet PO 400 mg BID MARIA ANTONIA Administration Metoprolol Succinate 50 mg 10/26/20 09:00 11/12/20 08:08 Metoprolol Succinate Er 50 Mg Tab.Er.24h PO 50 mg DAILY MARIA ANTONIA Administration Protocol Senna 8.6 mg 10/26/20 09:00 11/12/20 19:46 Sennosides 8.6 Mg Tablet PO 8.6 mg BID MARIA ANTONIA Administration Valproic Acid 500 mg 10/26/20 09:00 11/12/20 08:07 Valproic Acid (As Sodium Salt) 250 Mg/5 Ml Solution PO 500 mg DAILY MARIA ANTONIA Administration Valproic Acid 1,000 mg 11/07/20 21:00 11/12/20 19:44 Valproic Acid (As Sodium Salt) 250 Mg/5 Ml Solution PO 1,000 mg BEDTIME MARIA ANTONIA Administration Vitamin D 25 mcg 10/26/20 09:00 11/12/20 08:07 Cholecalciferol (Vitamin D3) 25 Mcg Tablet PO 25 mcg DAILY MARIA ANTONIA Administration Allergies Allergies Allergy/AdvReac Type Severity Reaction Status Date / Time No Known Allergies Allergy Verified 10/25/20 20:56 Assessment & Plan Assessment & Plan (1) Bipolar 1 disorder: Status: Acute Code(s): F31.9 - Bipolar disorder, unspecified Assessment and Plan: No change from primary treatments Greater than 50% of the session was spent on counseling and/or coordination of care Reason for contiued inpatient stay Substantial Risk for: inability to function
[2020-11-13 06:00] VITALS: BP 147/61; PULSE 58; RESP 12; TEMP 37.1; O2SAT 99
[2020-11-13] MEDS: Levothyroxine Sodium 125 MCG TABLET PO (06:03)
--- NOTE | 2020-11-13 08:08 | P.DS_ITS ---
DS: Providers Provider Date of Service: 11/16/20 Date of admission: 10/25/20 19:18 Date of discharge: 11/16/20 Primary care physician: Unknown Physician Consults: 10/26/20 10:58 Consult to Hospitalist Routine Consulting Provider: Hospitalist Reason For Exam: Direct admission Attending physician on discharge: Flaco Kelly DS: Diagnosis Discharge Diagnosis (1) Bipolar 1 disorder: Status: Acute DS: Medications Discharge Medications Home Medications: Home Medications Medication Instructions Recorded Confirmed Lactobacillus acidophilus 1 tab PO BID 10/26/20 10/26/20 (Acidophilus) acetaminophen 500 mg tablet 500 mg PO Q6H PRN 10/26/20 10/26/20 (Acetaminophen Extra Strength) allopurinol 300 mg tablet 300 mg PO DAILY 10/26/20 10/26/20 (Zyloprim) amlodipine 5 mg tablet 5 mg PO DAILY 10/26/20 10/26/20 aspirin 81 mg chewable tablet 81 mg PO DAILY 10/26/20 10/26/20 cholecalciferol (vitamin D3) 25 25 mcg PO DAILY 10/26/20 10/26/20 mcg (1,000 unit) tablet cyanocobalamin (vitamin B-12) 100 100 mcg PO DAILY 10/26/20 10/26/20 mcg tablet donepezil 10 mg tablet 10 mg PO BEDTIME 10/26/20 10/26/20 famotidine 40 mg tablet 40 mg PO DAILY 10/26/20 10/26/20 fluoxetine 20 mg tablet 20 mg PO DAILY 10/26/20 10/26/20 levothyroxine 125 mcg tablet 125 mcg PO DAILY@0800 10/26/20 10/26/20 lisinopril 5 mg tablet 5 mg PO DAILY 10/26/20 10/26/20 magnesium oxide 400 mg (241.3 mg 400 mg PO BID 10/26/20 10/26/20 magnesium) tablet (MagOx) metoprolol succinate 50 mg 50 mg PO DAILY 10/26/20 10/26/20 tablet,extended release 24 hr pantoprazole 40 mg tablet,delayed 40 mg PO DAILY 10/26/20 10/26/20 release sennosides 8.6 mg capsule 8.6 mg PO BID 10/26/20 10/26/20 tramadol 50 mg tablet 25 mg PO Q6H PRN 10/26/20 10/26/20 tramadol 50 mg tablet 25 mg PO TID 10/26/20 10/26/20 valproic acid (as sodium salt) 500 500 mg PO DAILY 10/26/20 10/26/20 mg/10 mL (10 mL) oral solution valproic acid (as sodium salt) 500 750 mg PO BEDTIME 10/26/20 10/26/20 mg/10 mL (10 mL) oral solution Mental Status Exam Mental Status Exam Patient Appearance: Well Grooomed Patient Orientation: Person, Place and Situation Level of Consciousness: Awake Patient Behavior: Cooperative Mood Description: Calm Affect Description: Constricted Patient Cognition Impaired: Yes Ability to Follow Directions: Good Speech Pattern: Clear Memory Description: Immediate Impaired Hallucinations: None Delusions: Not Present Thought Process: Slowed Thinking Thought Content: positive for Intact and positive for Circumstantial Judgement: Fair Data Data Completed and Pending Completed studies during hospitalization [Text1]: 11/07/20 11/07/20 11/09/20 06:14 06:14 07:04 WBC 7.8 RBC 3.24 L Hgb 10.3 L Hct 32.4 L MCV 100.0 H MCH 31.8 MCHC 31.8 RDW 16.3 H Plt Count 166 MPV 10.0 Immature Gran % (Auto) 0.4 Neut % (Auto) 38.8 L Lymph % (Auto) 41.8 H [place] % (Auto) 10.2 Eos % (Auto) 8.3 H Baso % (Auto) 0.5 Lymph # (Auto) 3.2 [place] # (Auto) 0.8 Eos # (Auto) 0.6 H Baso # (Auto) 0.0 Abs Immat Gran (auto) 0.03 Absolute Neuts (auto) 3.0 Absolute Nucleated RBC 0.000 Nucleated RBC % (auto) 0.0 Sodium 140 Potassium 4.6 Chloride 106 Carbon Dioxide 28 Anion Gap 11 L BUN 24 H Creatinine 1.01 Estim Creat Clear Calc 46.4 Estimated GFR 53 Random Glucose 150 H Calcium 9.5 Total Bilirubin 0.2 Direct Bilirubin < 0.2 AST 18 ALT 11 Alkaline Phosphatase 73 Total Protein 7.1 Albumin 3.4 L Valproic Acid 47.3 L 52.2 DS: Summary Hospital Course Hospital Course: The patient was initially transferred from the ED (she was on the ED for several days since there was no geriatric beds) from her [facility] since she was paranoid and accusatory against staff with increased agitation. The patient carries the diagnosis of Bipolar Disorder and she has been taking Depakote as a mood stabilizer. Since she was admitted here, she reported that in other facilities, she had a horrible experience and she was perseverative on those statements but here, she never showed any accusatory or paranoia against the staff. She was on the ED waiting for a bed for several days and she had received her Depakote. While she was in the unit, she was cooperative and pleasant, easily redirected. Her hearing was impaired and it was difficult to communicate with her but overall, there were no behavioral disturbances. We checked her depakote level and her baseline level was low so we adjusted it accordingly without any side effects. Since she was stable, discharge planning was discussed and she agreed to go to a SNF facility. His was aware of the disposition plan. Time spent discussing smoking cessation with patient: 3 to 10 minutes Status at Discharge Cognitive/behavioral status at discharge: Cognition at baseline Functional status at discharge: independent ambulation Overall status at discharge: patient is back to baseline Time Spent with Patient Time attestation: Total time spent providing and/or coordinating discharge services: Time spent: Less than 30 minutes Discharge Plan Discharge Patient Disposition: Xfer LT Discharge Diagnosis: Bipolar disorder Referrals: Physician,Unknown [Primary Care Provider] - 1 Week Discharge Medications: New sennosides [Senna Lax] 8.6 mg Tablet 8.6 mg PO BID 30 Days Qty: 60 RF: 0 metoprolol succinate 50 mg Tablet Extended Release 24 Hr 50 mg PO DAILY 30 Days Qty: 30 RF: 0 donepezil 10 mg Tablet 10 mg PO BEDTIME 30 Days Qty: 30 RF: 0 amlodipine 5 mg Tablet 5 mg PO DAILY 30 Days Qty: 30 RF: 0 famotidine 20 mg Tablet 40 mg PO DAILY 30 Days Qty: 60 RF: 0 magnesium oxide 400 mg (241.3 mg magnesium) Tablet 400 mg PO BID 30 Days Qty: 60 RF: 0 aspirin 81 mg Tablet,Chewable 81 mg PO DAILY 30 Days Qty: 30 RF: 0 lisinopril 5 mg Tablet 5 mg PO DAILY 30 Days Qty: 30 RF: 0 fluoxetine 20 mg Capsule 20 mg PO DAILY 30 Days Qty: 30 RF: 0 valproic acid (as sodium salt) 250 mg/5 mL (5 mL) Solution 1,000 mg PO BEDTIME 30 Days Qty: 600 RF: 0 valproic acid (as sodium salt) 250 mg/5 mL (5 mL) Solution 500 mg PO DAILY 30 Days Qty: 300 RF: 0 cyanocobalamin (vitamin B-12) [Vitamin B-12] 100 mcg Tablet 100 mcg PO DAILY 30 Days Qty: 30 RF: 0 levothyroxine 125 mcg Tablet 125 mcg PO DAILY@0630 30 Days Qty: 30 RF: 0 allopurinol 300 mg Tablet 300 mg PO DAILY 30 Days Qty: 30 RF: 0 cholecalciferol (vitamin D3) 25 mcg (1,000 unit) Tablet 25 mcg PO DAILY 30 Days Qty: 30 RF: 0 Continued amlodipine 5 mg Tablet 5 mg PO DAILY RF: 0 magnesium oxide [MagOx] 400 mg (241.3 mg magnesium) Tablet 400 mg PO BID RF: 0 fluoxetine 20 mg Tablet 20 mg PO DAILY RF: 0 allopurinol [Zyloprim] 300 mg Tablet 300 mg PO DAILY RF: 0 donepezil 10 mg Tablet 10 mg PO BEDTIME RF: 0 famotidine 40 mg Tablet 40 mg PO DAILY RF: 0 lisinopril 5 mg Tablet 5 mg PO DAILY RF: 0 cyanocobalamin (vitamin B-12) 100 mcg Tablet 100 mcg PO DAILY RF: 0 metoprolol succinate 50 mg Tablet Extended Release 24 Hr 50 mg PO DAILY RF: 0 levothyroxine 125 mcg Tablet 125 mcg PO DAILY@0800 RF: 0 cholecalciferol (vitamin D3) 25 mcg (1,000 unit) Tablet 25 mcg PO DAILY RF: 0 valproic acid (as sodium salt) 500 mg/10 mL (10 mL) Solution 500 mg PO DAILY RF: 0 aspirin 81 mg Tablet,Chewable 81 mg PO DAILY RF: 0 tramadol 50 mg Tablet 25 mg PO Q6H PRN (Reason: Moderate Pain (Scale Score 5-6)) 30 Days Qty: 30 RF: 0 acetaminophen [Acetaminophen Extra Strength] 500 mg Tablet 500 mg PO Q6H PRN (Reason: Breakthrough Pain, Moderate) 30 Days Qty: 90 RF: 0 pantoprazole 40 mg Tablet,Delayed Release (Dr/Ec) 40 mg PO DAILY 30 Days Qty: 30 RF: 0 Acidophilus Tablet,Chewable 1 tab PO BID 30 Days Qty: 60 RF: 0 Discontinued tramadol 50 mg Tablet 25 mg PO TID RF: 0 sennosides 8.6 mg Capsule 8.6 mg PO BID RF: 0 valproic acid (as sodium salt) 500 mg/10 mL (10 mL) Solution 750 mg PO BEDTIME RF: 0 Discharge Orders: Discharge Order (Routine); Ordered 11/13/20 Ordered By: Flaco Kelly Diet: advance to usual diet Activity on Discharge: As tolerated Stand Alone Forms: Patient Portal Discharge page Care Plan Goals: Care Plan Goals from Care Team already achieved in the unit Health Concerns: Continue treatment by PCP Plan of Treatment: Continue psychotropic treatment as per outpatient psychiatrist. Assessment: Elderly female with a past history of bipolar disorder, admitted since she was paranoid and accusatory in the previous facility but so far, we have not seen that behavior here. She had a low level of Depakote that it is already adjusted.
--- NOTE | 2020-11-13 09:22 | HO.PSYCHPN ---
Subjective Subjective Date of Service: 11/13/20 Reason For Visit: Bipolar Disorder unspecified Subjective Notes: Conditional Voluntary Interim History: The patient is waiting for discharge, at baseline but unfortunately, the discharge was canceled since the SNF has staffing problems. Review of Systems Acute medical concerns: No Medical Review of Systems: unchanged Mental Status Exam Mental Status Exam Patient Appearance: Well Grooomed Patient Orientation: Person Level of Consciousness: Awake Patient Behavior: Appropriate Mood Description: Calm Affect Description: Constricted Patient Cognition Impaired: Yes Ability to Follow Directions: Good Speech Pattern: Clear Memory Description: Intact Hallucinations: None Delusions: Not Present Thought Process: Goal Oriented Thought Content: positive for Intact Judgement: Fair Diagnostics Vital Signs (24Hr): Vital Signs - 24 hr 11/12/20 17:59 11/13/20 06:00 Temperature 98.0 F 98.7 F Pulse Rate 58 58 Respiratory Rate 18 12 Blood Pressure 133/63 147/61 H Pulse Oximetry 98 99 Body Mass Index 23.3 Labs Results: 11/07/20 06:14 11/07/20 06:14 Medications Medications Current Medications Generic Name Dose Route Start Last Admin Trade Name Freq PRN Reason Stop Dose Admin Acetaminophen 650 mg 10/26/20 03:14 Acetaminophen 325 Mg Tablet PO Q4H PRN moderate pain Allopurinol 300 mg 10/26/20 09:00 11/12/20 08:08 Allopurinol 300 Mg Tablet PO 300 mg DAILY MARIA ANTONIA Administration Amlodipine Besylate 5 mg 10/26/20 09:00 11/12/20 08:08 Amlodipine Besylate 5 Mg Tablet PO 5 mg DAILY MARIA ANTONIA Administration Protocol Aspirin 81 mg 10/26/20 09:00 11/12/20 08:08 Aspirin 81 Mg Tab.Chew PO 81 mg DAILY MARIA ANTONIA Administration Cyanocobalamin 100 mcg 10/26/20 09:00 11/12/20 08:08 Cyanocobalamin (Vitamin B-12) 100 Mcg Tablet PO 100 mcg DAILY MARIA ANTONIA Administration Donepezil HCl 10 mg 10/26/20 21:00 11/12/20 19:46 Donepezil Hcl 10 Mg Tablet PO 10 mg BEDTIME MARIA ANTONIA Administration Famotidine 40 mg 10/26/20 09:00 11/12/20 08:08 Famotidine 20 Mg Tablet PO 40 mg DAILY MARIA ANTONIA Administration Fluoxetine HCl 20 mg 10/26/20 09:00 11/12/20 08:08 Fluoxetine Hcl 20 Mg Capsule PO 20 mg DAILY MARIA ANTONIA Administration Levothyroxine Sodium 125 mcg 10/26/20 06:30 11/13/20 06:03 Levothyroxine Sodium 125 Mcg Tablet PO 125 mcg DAILY@0630 MARIA ANTONIA Administration Lisinopril 5 mg 10/26/20 09:00 11/12/20 08:09 Lisinopril 5 Mg Tablet PO 5 mg DAILY MARIA ANTONIA Administration Protocol Magnesium Oxide 400 mg 10/26/20 09:00 11/12/20 19:44 Magnesium Oxide 400 Mg Tablet PO 400 mg BID MARIA ANTONIA Administration Metoprolol Succinate 50 mg 10/26/20 09:00 11/12/20 08:08 Metoprolol Succinate Er 50 Mg Tab.Er.24h PO 50 mg DAILY MARIA ANTONIA Administration Protocol Senna 8.6 mg 10/26/20 09:00 11/12/20 19:46 Sennosides 8.6 Mg Tablet PO 8.6 mg BID MARIA ANTONIA Administration Valproic Acid 500 mg 10/26/20 09:00 11/12/20 08:07 Valproic Acid (As Sodium Salt) 250 Mg/5 Ml Solution PO 500 mg DAILY MARIA ANTONIA Administration Valproic Acid 1,000 mg 11/07/20 21:00 11/12/20 19:44 Valproic Acid (As Sodium Salt) 250 Mg/5 Ml Solution PO 1,000 mg BEDTIME MARIA ANTONIA Administration Vitamin D 25 mcg 10/26/20 09:00 11/12/20 08:07 Cholecalciferol (Vitamin D3) 25 Mcg Tablet PO 25 mcg DAILY MARIA ANTONIA Administration Allergies Allergies Allergy/AdvReac Type Severity Reaction Status Date / Time No Known Allergies Allergy Verified 10/25/20 20:56 Assessment & Plan Assessment & Plan (1) Bipolar 1 disorder: Status: Acute Code(s): F31.9 - Bipolar disorder, unspecified Assessment and Plan: No change from primary treatments D/C to SNF cancelled today Greater than 50% of the session was spent on counseling and/or coordination of care Reason for contiued inpatient stay Substantial Risk for: stable for discharge (waiting for SNF)
[2020-11-13 10:09] VITALS: BP 160/71; PULSE 61
[2020-11-13] MEDS: Cholecalciferol (Vitamin D3) 25 MCG TABLET PO (10:09)
[2020-11-13] MEDS: Famotidine 20 MG TABLET 40 MG PO (10:09)
[2020-11-13] MEDS: Aspirin 81 MG TAB.CHEW PO (10:09)
[2020-11-13] MEDS: FLUoxetine HCl 20 MG CAPSULE PO (10:09)
[2020-11-13] MEDS: Sennosides 8.6 MG TABLET PO ×2 (10:09→20:31)
[2020-11-13] MEDS: allopurinoL 300 MG TABLET PO (10:09)
[2020-11-13] MEDS: Cyanocobalamin (Vitamin B-12) 100 MCG TABLET PO (10:09)
[2020-11-13] MEDS: Magnesium Oxide 400 MG TABLET PO ×2 (10:09→20:31)
[2020-11-13] MEDS: lisinopriL 5 MG TABLET PO (10:09)
[2020-11-13 10:10] VITALS: BP 160/71; PULSE 61
[2020-11-13] MEDS: Metoprolol Succinate ER 50 MG TAB.ER.24H PO (10:10)
[2020-11-13] MEDS: amLODIPine Besylate 5 MG TABLET PO (10:10)
[2020-11-13 18:00] VITALS: BP 152/71; PULSE 62; TEMP 37; O2SAT 98
[2020-11-13] MEDS: Donepezil HCl 10 MG TABLET PO (20:31)
[2020-11-14] MEDS: Levothyroxine Sodium 125 MCG TABLET PO (05:52)
[2020-11-14 06:00] VITALS: BP 178/75; PULSE 59; RESP 18; TEMP 36.1; O2SAT 98
[2020-11-14] MEDS: Magnesium Oxide 400 MG TABLET PO ×2 (08:53→20:28)
[2020-11-14 08:54] VITALS: BP 164/72; PULSE 60
[2020-11-14] MEDS: Metoprolol Succinate ER 50 MG TAB.ER.24H PO (08:54)
[2020-11-14] MEDS: Sennosides 8.6 MG TABLET PO ×2 (08:54→20:28)
[2020-11-14] MEDS: Aspirin 81 MG TAB.CHEW PO (08:54)
[2020-11-14] MEDS: Cyanocobalamin (Vitamin B-12) 100 MCG TABLET PO (08:54)
[2020-11-14] MEDS: Cholecalciferol (Vitamin D3) 25 MCG TABLET PO (08:55)
[2020-11-14] MEDS: FLUoxetine HCl 20 MG CAPSULE PO (08:55)
[2020-11-14 08:56] VITALS: BP 164/72; PULSE 60
[2020-11-14] MEDS: allopurinoL 300 MG TABLET PO (08:56)
[2020-11-14] MEDS: lisinopriL 5 MG TABLET PO (08:56)
[2020-11-14 08:57] VITALS: BP 164/72; PULSE 60
[2020-11-14] MEDS: Famotidine 20 MG TABLET 40 MG PO (08:57)
[2020-11-14] MEDS: amLODIPine Besylate 5 MG TABLET PO (08:57)
--- NOTE | 2020-11-14 14:07 | HO.PSYCHPN ---
Subjective Subjective Date of Service: 11/14/20 Reason For Visit: Bipolar Disorder unspecified Interim History: Still waiting for a bed, stable Review of Systems Acute medical concerns: No Medical Review of Systems: unchanged Mental Status Exam Mental Status Exam Patient Appearance: Well Grooomed Patient Orientation: Person Level of Consciousness: Awake Patient Behavior: Appropriate Mood Description: Calm Affect Description: Constricted Patient Cognition Impaired: Yes Ability to Follow Directions: Good Speech Pattern: Clear Memory Description: Intact Hallucinations: None Delusions: Not Present Thought Process: Distracted and Slowed Thinking Thought Content: positive for Circumstantial Judgement: Fair Diagnostics Vital Signs (24Hr): Vital Signs - 24 hr 11/13/20 18:00 11/14/20 06:00 11/14/20 08:54 Temperature 98.6 F 97 F Pulse Rate 62 59 60 Respiratory Rate 18 Blood Pressure 152/71 H 178/75 H 164/72 H Pulse Oximetry 98 98 11/14/20 08:56 11/14/20 08:57 Temperature Pulse Rate 60 60 Respiratory Rate Blood Pressure 164/72 H 164/72 H Pulse Oximetry Body Mass Index 23.3 Labs Results: 11/07/20 06:14 11/07/20 06:14 Medications Medications Current Medications Generic Name Dose Route Start Last Admin Trade Name Freq PRN Reason Stop Dose Admin Acetaminophen 650 mg 10/26/20 03:14 Acetaminophen 325 Mg Tablet PO Q4H PRN moderate pain Allopurinol 300 mg 10/26/20 09:00 11/14/20 08:56 Allopurinol 300 Mg Tablet PO 300 mg DAILY MARIA ANTONIA Administration Amlodipine Besylate 5 mg 10/26/20 09:00 11/14/20 08:57 Amlodipine Besylate 5 Mg Tablet PO 5 mg DAILY MARIA ANTONIA Administration Protocol Aspirin 81 mg 10/26/20 09:00 11/14/20 08:54 Aspirin 81 Mg Tab.Chew PO 81 mg DAILY MARIA ANTONIA Administration Cyanocobalamin 100 mcg 10/26/20 09:00 11/14/20 08:54 Cyanocobalamin (Vitamin B-12) 100 Mcg Tablet PO 100 mcg DAILY MARIA ANTONIA Administration Donepezil HCl 10 mg 10/26/20 21:00 11/13/20 20:31 Donepezil Hcl 10 Mg Tablet PO 10 mg BEDTIME MARIA ANTONIA Administration Famotidine 40 mg 10/26/20 09:00 11/14/20 08:57 Famotidine 20 Mg Tablet PO 40 mg DAILY MARIA ANTONIA Administration Fluoxetine HCl 20 mg 10/26/20 09:00 11/14/20 08:55 Fluoxetine Hcl 20 Mg Capsule PO 20 mg DAILY MARIA ANTONIA Administration Levothyroxine Sodium 125 mcg 10/26/20 06:30 11/14/20 05:52 Levothyroxine Sodium 125 Mcg Tablet PO 125 mcg DAILY@0630 MARIA ANTONIA Administration Lisinopril 5 mg 10/26/20 09:00 11/14/20 08:56 Lisinopril 5 Mg Tablet PO 5 mg DAILY MARIA ANTONIA Administration Protocol Magnesium Oxide 400 mg 10/26/20 09:00 11/14/20 08:53 Magnesium Oxide 400 Mg Tablet PO 400 mg BID MARIA ANTONIA Administration Metoprolol Succinate 50 mg 10/26/20 09:00 11/14/20 08:54 Metoprolol Succinate Er 50 Mg Tab.Er.24h PO 50 mg DAILY MARIA ANTONIA Administration Protocol Senna 8.6 mg 10/26/20 09:00 11/14/20 08:54 Sennosides 8.6 Mg Tablet PO 8.6 mg BID MARIA ANTONIA Administration Valproic Acid 500 mg 10/26/20 09:00 11/14/20 08:59 Valproic Acid (As Sodium Salt) 250 Mg/5 Ml Solution PO 500 mg DAILY MARIA ANTONIA Administration Valproic Acid 1,000 mg 11/07/20 21:00 11/13/20 20:31 Valproic Acid (As Sodium Salt) 250 Mg/5 Ml Solution PO 1,000 mg BEDTIME MARIA ANTONIA Administration Vitamin D 25 mcg 10/26/20 09:00 11/14/20 08:55 Cholecalciferol (Vitamin D3) 25 Mcg Tablet PO 25 mcg DAILY MARIA ANTONIA Administration Allergies Allergies Allergy/AdvReac Type Severity Reaction Status Date / Time No Known Allergies Allergy Verified 10/25/20 20:56 Assessment & Plan Assessment & Plan (1) Bipolar 1 disorder: Status: Acute Code(s): F31.9 - Bipolar disorder, unspecified Assessment and Plan: No change from primary treatments D/C to SNF cancelled today waiting for the bed Greater than 50% of the session was spent on counseling and/or coordination of care Reason for contiued inpatient stay Substantial Risk for: stable for discharge
[2020-11-14 18:00] VITALS: BP 166/72; PULSE 58; RESP 12; TEMP 36.1; O2SAT 99
[2020-11-14] MEDS: Donepezil HCl 10 MG TABLET PO (20:28)
[2020-11-15 06:00] VITALS: BP 185/86; PULSE 62; RESP 20; TEMP 36.3; O2SAT 100
[2020-11-15] MEDS: Levothyroxine Sodium 125 MCG TABLET PO (06:07)
[2020-11-15 06:41] LABS: COVID-19 Test Negative (Negative); IDNOW Serial# 9DD0AD1C
[2020-11-15] MEDS: Cholecalciferol (Vitamin D3) 25 MCG TABLET PO (09:08)
[2020-11-15 09:09] VITALS: BP 155/70
[2020-11-15] MEDS: Metoprolol Succinate ER 50 MG TAB.ER.24H PO (09:09)
[2020-11-15] MEDS: Famotidine 20 MG TABLET 40 MG PO (09:09)
[2020-11-15] MEDS: lisinopriL 5 MG TABLET PO (09:09)
[2020-11-15] MEDS: FLUoxetine HCl 20 MG CAPSULE PO (09:09)
[2020-11-15] MEDS: Aspirin 81 MG TAB.CHEW PO (09:09)
[2020-11-15] MEDS: amLODIPine Besylate 5 MG TABLET PO (09:10)
[2020-11-15] MEDS: allopurinoL 300 MG TABLET PO (09:10)
[2020-11-15] MEDS: Sennosides 8.6 MG TABLET PO ×2 (09:10→20:34)
[2020-11-15] MEDS: Cyanocobalamin (Vitamin B-12) 100 MCG TABLET PO (09:10)
[2020-11-15] MEDS: Magnesium Oxide 400 MG TABLET PO ×2 (09:10→20:34)
[2020-11-15 09:11] VITALS: BP 155/70; PULSE 56; RESP 16; TEMP 36.8; O2SAT 100
--- NOTE | 2020-11-15 15:02 | HO.PSYCHPN ---
Subjective Subjective Date of Service: 11/15/20 Reason For Visit: Bipolar Disorder unspecified Interim History: The patient has been upset since she could not be discharged today. Discharge to SNF tomorrow. The patient denies new symptoms, compliant with treatment. Review of Systems Acute medical concerns: No Medical Review of Systems: unchanged Mental Status Exam Mental Status Exam Patient Appearance: Well Grooomed Patient Orientation: Person Level of Consciousness: Awake and Appropriate Patient Behavior: Appropriate Mood Description: Withdrawn Affect Description: Constricted Patient Cognition Impaired: Yes Ability to Follow Directions: Good Speech Pattern: Clear Hallucinations: None Delusions: Not Present Thought Process: Evasive and Slowed Thinking Thought Content: positive for Circumstantial Judgement: Fair Diagnostics Vital Signs (24Hr): Vital Signs - 24 hr 11/14/20 18:00 11/15/20 06:00 11/15/20 09:09 Temperature 97.0 F 97.4 F Pulse Rate 58 62 Respiratory Rate 12 20 Blood Pressure 166/72 H 185/86 H 155/70 H Pulse Oximetry 99 100 11/15/20 09:11 Temperature 98.3 F Pulse Rate 56 Respiratory Rate 16 Blood Pressure 155/70 H Pulse Oximetry 100 Body Mass Index 23.3 Labs Results: 11/07/20 06:14 11/07/20 06:14 Labs: Laboratory Results - last 48 hr 11/15/20 06:00 COVID-19 ([facility]) Negative COVID-19 Clin Com See Note Medications Medications Current Medications Generic Name Dose Route Start Last Admin Trade Name Freq PRN Reason Stop Dose Admin Acetaminophen 650 mg 10/26/20 03:14 Acetaminophen 325 Mg Tablet PO Q4H PRN moderate pain Allopurinol 300 mg 10/26/20 09:00 11/15/20 09:10 Allopurinol 300 Mg Tablet PO 300 mg DAILY MARIA ANTONIA Administration Amlodipine Besylate 5 mg 10/26/20 09:00 11/15/20 09:10 Amlodipine Besylate 5 Mg Tablet PO 5 mg DAILY MARIA ANTONIA Administration Protocol Aspirin 81 mg 10/26/20 09:00 11/15/20 09:09 Aspirin 81 Mg Tab.Chew PO 81 mg DAILY MARIA ANTONIA Administration Cyanocobalamin 100 mcg 10/26/20 09:00 11/15/20 09:10 Cyanocobalamin (Vitamin B-12) 100 Mcg Tablet PO 100 mcg DAILY MARIA ANTONIA Administration Donepezil HCl 10 mg 10/26/20 21:00 11/14/20 20:28 Donepezil Hcl 10 Mg Tablet PO 10 mg BEDTIME MARIA ANTONIA Administration Famotidine 40 mg 10/26/20 09:00 11/15/20 09:09 Famotidine 20 Mg Tablet PO 40 mg DAILY MARIA ANTONIA Administration Fluoxetine HCl 20 mg 10/26/20 09:00 11/15/20 09:09 Fluoxetine Hcl 20 Mg Capsule PO 20 mg DAILY MARIA ANTONIA Administration Levothyroxine Sodium 125 mcg 10/26/20 06:30 11/15/20 06:07 Levothyroxine Sodium 125 Mcg Tablet PO 125 mcg DAILY@0630 MARIA ANTONIA Administration Lisinopril 5 mg 10/26/20 09:00 11/15/20 09:09 Lisinopril 5 Mg Tablet PO 5 mg DAILY MARIA ANTONIA Administration Protocol Magnesium Oxide 400 mg 10/26/20 09:00 11/15/20 09:10 Magnesium Oxide 400 Mg Tablet PO 400 mg BID MARIA ANTONIA Administration Metoprolol Succinate 50 mg 10/26/20 09:00 11/15/20 09:09 Metoprolol Succinate Er 50 Mg Tab.Er.24h PO 50 mg DAILY MARIA ANTONIA Administration Protocol Senna 8.6 mg 10/26/20 09:00 11/15/20 09:10 Sennosides 8.6 Mg Tablet PO 8.6 mg BID MARIA ANTONIA Administration Valproic Acid 500 mg 10/26/20 09:00 11/15/20 09:21 Valproic Acid (As Sodium Salt) 250 Mg/5 Ml Solution PO 500 mg DAILY MARIA ANTONIA Administration Valproic Acid 1,000 mg 11/07/20 21:00 11/14/20 20:28 Valproic Acid (As Sodium Salt) 250 Mg/5 Ml Solution PO 1,000 mg BEDTIME MARIA ANTONIA Administration Vitamin D 25 mcg 10/26/20 09:00 11/15/20 09:08 Cholecalciferol (Vitamin D3) 25 Mcg Tablet PO 25 mcg DAILY MARIA ANTONIA Administration Allergies Allergies Allergy/AdvReac Type Severity Reaction Status Date / Time No Known Allergies Allergy Verified 10/25/20 20:56 Assessment & Plan Assessment & Plan (1) Bipolar 1 disorder: Status: Acute Code(s): F31.9 - Bipolar disorder, unspecified Assessment and Plan: No change from primary treatments D/C to SNF cancelled today waiting for the bed Greater than 50% of the session was spent on counseling and/or coordination of care Reason for contiued inpatient stay Substantial Risk for: inability to function, stable for discharge and rapid decompensation
[2020-11-15 18:00] VITALS: RESP 12
[2020-11-15] MEDS: Donepezil HCl 10 MG TABLET PO (20:35)
[2020-11-16] MEDS: Levothyroxine Sodium 125 MCG TABLET PO (05:59)
[2020-11-16 06:00] VITALS: BP 170/71; PULSE 55; RESP 12; TEMP 36.6; O2SAT 99
[2020-11-16 07:00] VITALS: BMI 23.7
[2020-11-16] MEDS: FLUoxetine HCl 20 MG CAPSULE PO (08:22)
[2020-11-16] MEDS: Aspirin 81 MG TAB.CHEW PO (08:22)
[2020-11-16] MEDS: Famotidine 20 MG TABLET 40 MG PO (08:22)
[2020-11-16] MEDS: Cyanocobalamin (Vitamin B-12) 100 MCG TABLET PO (08:22)
[2020-11-16] MEDS: Cholecalciferol (Vitamin D3) 25 MCG TABLET PO (08:22)
[2020-11-16] MEDS: Sennosides 8.6 MG TABLET PO (08:22)
[2020-11-16 08:23] VITALS: BP 134/63; PULSE 57
[2020-11-16] MEDS: Metoprolol Succinate ER 50 MG TAB.ER.24H PO (08:23)
[2020-11-16] MEDS: allopurinoL 300 MG TABLET PO (08:23)
[2020-11-16] MEDS: Magnesium Oxide 400 MG TABLET PO (08:23)
[2020-11-16 08:24] VITALS: BP 134/63; PULSE 57
[2020-11-16] MEDS: lisinopriL 5 MG TABLET PO (08:24)
[2020-11-16 08:25] VITALS: BP 134/63; PULSE 57
[2020-11-16] MEDS: amLODIPine Besylate 5 MG TABLET PO (08:25)
--- NOTE | 2020-11-16 11:14 | PC.NURSE ---
Patient ready and aware of discharge. Current mental status is alert and oriented. Patient calm and cooperative. Med compliant. Paperwork reviewed with patient . All questions answered. Patient able to verbalize understanding of discharge plan. paperwork complete and sent with patient to SNF.
== END 2020-11-16 11:13 | DRG 885 ==
PROVIDERS: Admitting Provider Psychiatry & Neurology Psychiatry; Visit Provider Psychiatry & Neurology Psychiatry
DX: F31.9 Bipolar disorder, unspecified (principal); E03.9 Hypothyroidism, unspecified; F03.90 Unspecified dementia, unspecified severity, without behavioral disturbance, psychotic disturbance, mood disturbance, and anxiety; M10.9 Gout, unspecified; Z20.822 Contact with and (suspected) exposure to COVID-19; I25.2 Old myocardial infarction; I25.10 Atherosclerotic heart disease of native coronary artery without angina pectoris; Z86.73 Personal history of transient ischemic attack (TIA), and cerebral infarction without residual deficits; Z79.891 Long term (current) use of opiate analgesic; Z79.82 Long term (current) use of aspirin; Z79.890 Hormone replacement therapy; Z79.899 Other long term (current) drug therapy
CPT/HCPCS: 36415; 80048; 80076; 80164; 85025; 87635; 99232